=== PATIENT | female | born 1940 | race Caucasian/White ===

== ENCOUNTER 2018-02-10 10:00 | Inpatient (IN) | payer MEDICARE, OTHER ==
[~2018-02-10] VITALS: Ht 165.1 cm; Wt 76.2 kg
[~2018-02-10 10:00] MED LIST: FIORINAL 50-321 EACH PO; METOPROLOL; OMEPRAZOLE40 MG PO; PRISTIQ ER50 MG PO
[2018-02-10] MEDS ORDERED: ASPIRIN 325 MG TAB PO ONE (10:45)
[2018-02-10] MEDS ORDERED: SYNTHROID75 MCG PO (11:42)
[2018-02-10] MEDS ORDERED: ASPIRIN 81 MG CHEW TAB PO ONE (11:45)
[2018-02-10 14:58] LABS: CREATINE KINASE 36 IU/L (29-168)
[2018-02-10 15:16] VITALS: BP 157/82
[2018-02-10 15:43] VITALS: BP 157/82
[2018-02-10 16:00] VITALS: BP 163/71
[2018-02-10] MEDS: MORPHINE SULFATE 2 MG/ML SYR IV PRN ×2 (16:40→22:34)
[2018-02-10] MEDS: ONDANSETRON HCL INJ 2 MG/ML VIAL IV PRN (16:45)
[2018-02-10] MEDS ORDERED: CAFFEINE PO PRN (18:30)
[2018-02-10] MEDS ORDERED: [UNRECOGNIZED DRUG - OTHER] PO PRN (18:30)
[2018-02-10] MEDS ORDERED: BUTALBITAL PO PRN (18:30)
[2018-02-10] MEDS ORDERED: ASPIRIN PO PRN (18:30)
[2018-02-10 19:49] VITALS: BP 146/65
[2018-02-10] MEDS: METOPROLOL SUCCINATE 50 MG TAB XL PO SCH (21:04)
[2018-02-10 23:45] VITALS: BP 135/63
[2018-02-11 02:31] LABS: CREATINE KINASE 59 IU/L (29-168)
[2018-02-11] MEDS: MORPHINE SULFATE 2 MG/ML SYR IV PRN (03:12)
[2018-02-11 04:48] LABS: BASOPHILS % 0.9 % (0.0-1.0); EOSINOPHILS # (AUTO) 0.1 (0.0-0.4); EOSINOPHILS % 2.1 % (0.0-6.0); HEMATOCRIT 38.1 % (34.2-44.1); HEMOGLOBIN 12.8 g/dL (12.0-16.0); LYMPHOCYTES # (AUTO) 1.2 (1.0-3.2); LYMPHOCYTES % 28.4 % (18.0-39.1); MEAN CORPUSCULAR HGB CONC 33.6 g/dL (31-35); MEAN CORPUSCULAR VOLUME 95.3 fL (81-99); MONOCYTES # (AUTO) 0.5 (0.2-0.8); MONOCYTES % 12.1 % (4.4-11.3); NEUTROPHILS # (AUTO) 2.4 (2.1-6.9); NEUTROPHILS % 56.3 % (38.7-80.0); PLATELET COUNT 139 x10e3/uL (140-360); RED CELL DISTRIBUTION WIDTH 12.1 % (11.7-14.4)
[2018-02-11 04:50] VITALS: BP 120/58
[2018-02-11 05:08] LABS: ANION GAP 11.2 mmol/L (8-16); BLOOD UREA NITROGEN 16 mg/dL (7-26); BUN/CREATININE RATIO 26 (6-25); CALCIUM 8.9 mg/dL (8.4-10.2); CARBON DIOXIDE 24 mmol/L (22-29); CHLORIDE 107 mmol/L (98-107); CREATINE KINASE 46 IU/L (29-168); CREATININE, SERUM 0.62 mg/dL (0.57-1.11); EST GLOMERULAR FILTRATION RATE > 60 ML/MIN (60-); GLUCOSE 92 mg/dL (74-118); MAGNESIUM 1.9 MG/DL (1.3-2.1); PHOSPHORUS 2.9 MG/DL (2.3-4.7); POTASSIUM 4.2 mmol/L (3.5-5.1); SODIUM 138 mmol/L (136-145)
[2018-02-11] MEDS ORDERED: LEVOTHYROXINE SODIUM 75 MCG TAB PO SCH (06:00)
[2018-02-11 07:17] LABS: CHOL/HDL RATIO 2.7 (3.0-3.6)
[2018-02-11] MEDS ORDERED: ACETAMINOPHEN 325 MG TAB PO PRN (07:30)
[2018-02-11 07:56] VITALS: BP 132/61
[2018-02-11 08:30] VITALS: BP 132/61
[2018-02-11] MEDS ORDERED: DESVENLAFAXINE SUCCINATE 50 MG TAB.SR.24H PO SCH (09:00)
[2018-02-11] MEDS ORDERED: PANTOPRAZOLE SOD 40 MG TABEC PO SCH (09:00)
[2018-02-11] MEDS ORDERED: ASPIRIN 325 MG TAB EC PO SCH (09:00)
[2018-02-11] MEDS: ONDANSETRON HCL INJ 2 MG/ML VIAL IV PRN ×2 (10:08→14:00)
[2018-02-11 16:30] VITALS: BP 149/67
--- NOTE | 2018-02-11 19:43 | History and Physical ---
This is a 78-year-old female who comes in with acute onset of confusion and off balance. HISTORY OF PRESENT ILLNESS: This is a 78-year-old female with a history of hypertension, history of palpitations, history of migraine headaches was in her usual state of health until she started to have acute senses of wanting to cry and also unable to stand straight, and has instability. The patient also has a history of anxiety. The patient also has had episode of incessant crying at that time. Came into the emergency room and was admitted to the hospital for rule out TIA, history of hypertension. PAST MEDICAL HISTORY: Includes history of hypertension, history of anxiety disorder, history of migraine headaches, history of COPD, history of thyroid disease, history of hypothyroidism, history of renal cancer, history of hyperglycemia. SURGICAL HISTORY: Lumbar laminectomy and fusion times 4, partial nephrectomy, right-sided, tonsillectomy, history of appendectomy, history of partial hysterectomy, bilateral oophorectomy, right meniscal repair, bilateral cataract repair. The patient was recently in the hospital for the partial nephrectomy. FAMILY HISTORY: History of coronary disease in father and mother. History of brother having colon cancer. SOCIAL HISTORY: No ETOH. History of smoking in the past. No IV drug use either. REVIEW OF SYSTEMS: Negative for chest pain. No shortness of breath. No nausea, vomiting or diarrhea. No constipation. No rectal bleeding. Positive for emotional liabilities. Positive for some headaches and also mental confusion. PHYSICAL EXAMINATION GENERAL: The patient is alert and oriented times 3. HEENT: Normocephalic and atraumatic. Pupils are reactive to light and accommodation. CV: S1 and S2 normal. LUNGS: Clear to auscultation bilaterally. ABDOMEN: Nontender and nondistended. EXTREMITIES: No clubbing. No cyanosis. No edema. LABS: The patient's laboratory values, initial white count is 4.3, hemoglobin 12.3, hematocrit 33.1, and platelet count is 139,000. Monocytes 12.2. Chemistry: Sodium 138, potassium 4.2, EGFR greater than 60. Troponin times 3 was negative. HDL was 63. IMAGING STUDIES: MRI was negative. Neck MRI was also negative. Echocardiogram shows trace amount of pericardial effusion, otherwise negative. ASSESSMENT: Questionable transient ischemic attack. Consult with Dr. Jada Mckeon has already been done. She does not think the patient had a transient ischemic attack. Questionable headache onset described in symptoms. PLAN: To discharge the patient home today. Further recommendations per clinical course. We will also see the patient as an outpatient. Will restart her oral medications. I will see her back in the clinic. She can continue on home medicines. Will see her back in the clinic in 1 week. Job#: [id number] MACEY
--- NOTE | 2018-02-11 19:55 | Consultation ---
DATE OF CONSULTATION: February 11, 2018 NEUROLOGY CONSULTATION HISTORY OF PRESENT ILLNESS: Ms. Evans is a 77-year-old right hand dominant woman with past medical history significant for hypertension and a prior history of renal cancer, status post right partial nephrectomy who presented to [facility] on February 10, 2018 with 2 days of symptoms which are described as follows: On the day prior to admission, the patient awoke with an "electric sensation" over the head. Ms. Evans thought this abnormal sensation was a medication side effect, but did not seek medical evaluation. On the day of admission, the patient awoke at approximately 0800. When she awoke, the patient noted generalized weakness, dizziness which is further described as a vertiginous sensation, slurred speech, mild gait impairment, and confusion. Multiple of the patient's family members who are at the bedside reports the patient did not recall the name of the president of the [employer], had difficulty operating her smart phone, had difficulty recalling the names of family members, etc. The patient had a headache as well which is described as follows: The pain localized over the occiput and did not radiate. The pain was described as dual and aching and rated an 8/10. There was no photophobia, phonophobia, nausea, or vomiting associated with the headache. Upon further questioning, Ms. Evans reports the above constellation of symptoms was present throughout the day prior to admission, but significantly worsened on the day of admission. On the day of admission, Ms. Evans awoke her , alert him to her symptoms and came to the emergency center at [facility] via private vehicle for further evaluation. Upon admission to the emergency center, patient was afebrile with a blood pressure of 173/80 mmHg and a pulse of 71 beats per minute. Her neurological examination is documented as follows: Alert. Oriented x3. Abnormal verbal response (expressive aphasia0. Mood/affect normal. Speech normal. Cranial nerves normal (as tested and tested) and 2 through 12 intact. No cerebellar findings. No motor deficits and deficits. No sensory deficit. An NIH stroke scale score of [address] of the brain without contrast was performed and did not show evidence of recent large territorial ischemia or hemorrhage. Ms. Evans was admitted to [facility] for further evaluation and treatment of her symptoms. Ms. Evans does report a prior instance of vertigo. She does not report a history of migraine or other headaches. REVIEW OF SYSTEMS: Palpitations, generalized weakness, confusion, vertigo, headache, dysarthria. Otherwise, the 12-point review of systems is negative. PAST MEDICAL HISTORY: Hypertension, COPD, thyroid disease, gastroesophageal reflux disease, anxiety disorder, prior history of renal cancer, hypoglycemia. PAST SURGICAL HISTORY: Lumbar spine surgery x4, right partial nephrectomy, tonsillectomy, appendectomy, partial hysterectomy, bilateral oophorectomy, right meniscus repair, bilateral cataract resection. PAST HOSPITALIZATIONS: Surgeries/procedures as listed, childbirth x2. FAMILY HISTORY: The patient's paternal and maternal grandparents are . Their medical histories are unknown. The patient's father and mother are . Both had coronary artery disease and from heart attacks. Ms. Evans had 2 brothers and 2 sisters. One brother and 1 sister are from separate motor vehicle accidents. One brother is alive and has a prior history of colon cancer. One sister is alive and healthy. Ms. Evans has 2 children, a daughter and a son, who are both living. Both children are healthy. SOCIAL HISTORY: Ms. Evans is . She completed school through the 10th grade. The patient is retired. The patient does report a history of tobacco use, but quit smoking cigarettes 12 to 13 years ago. Ms. Evans does not report current or prior alcohol or recreational drug use. HOME MEDICATIONS: Fiorinal one capsule by mouth three times daily as needed for headache, Pristiq ER 50 mg by mouth daily, levothyroxine 75 mcg by mouth daily, omeprazole 40 mg by mouth daily, metoprolol. ALLERGIES: CODEINE, DEMEROL, AND PENICILLIN. PATIENT REPORTS DEMEROL AND CODEINE CAUSE HIVES. NO KNOWN FOOD ALLERGIES. NO KNOWN ALLERGIES TO LATEX. NO KNOWN ALLERGIES TO IODINE OR OTHER CONTRAST MATERIALS. PHYSICAL EXAMINATION VITAL SIGNS: Height 65 inches, weight 168 pounds, BMI 28.0 kg per meter squared. Blood pressure 132/61 mmHg, pulse 85 beats per minute, respiratory rate 18 breaths per minute, oxygen saturation 96% on room air. GENERAL: Patient is awake and alert, does not appear distressed. Overweight. HEENT: Normocephalic, atraumatic. Pupils are equal, round, and reactive to light. Moist mucous membranes. NECK: Supple. No appreciable thyromegaly. No appreciable carotid bruits. CARDIOVASCULAR: S1, S2, regular rate and rhythm. No murmurs, rubs, or gallops. RESPIRATORY: Clear to auscultation bilaterally. No wheezes, rhonchi, or rales. EXTREMITIES: The skin is warm and dry. No clubbing, cyanosis, or edema. The posterior tibial and dorsalis pedis pulses are 2+ and symmetric. SKIN: No rashes or lesions. NEUROLOGIC MEMORY/ATTENTION: The patient is awake and alert, oriented to person, place, time, and situation. CRANIAL NERVES: Cranial nerve I - Not tested. Cranial nerve II, III, IV, and - Pupils are equal and round, react briskly to light (from 4 mm to 2 mm). Extraocular movements intact. No nystagmus. Cranial nerve V - Sensation to light touch and pinprick is intact in the bilateral V1 through V3 distributions. Strength of the temporalis and masseter muscles is within normal limits. Cranial nerve VII - The face is symmetric as are all facial movements. Strength is within normal limits. Cranial nerve VIII - Hearing is intact to finger rub bilaterally. Cranial nerve IX, X - The soft palate elevates equally and symmetrically. Cranial nerve XI - Normal strength of the bilateral sternocleidomastoid and trapezius muscles. Cranial nerve XII - The tongue protrudes midline and moves symmetrically from side to side. STRENGTH: Bulk is normal. Strength is 5/5 in the bilateral deltoids, biceps, triceps, wrist flexors and extensors, finger flexors and extensors, intrinsic hand muscles, hip flexors, knee flexors and extensors, ankle dorsiflexion and plantar flexion, and intrinsic foot muscles. Tone is normal. DTRs: Deep tendon reflexes are 2+ and symmetric at the triceps, biceps, brachioradialis, and patellas. Deep tendon reflexes are absent and symmetric at the Achilles. Plantar responses are flexor bilaterally. SENSATION: Sensation is intact to light touch and pinprick in both arms and both legs. CEREBELLAR: Fihqlp-geps-mkllrn and heel-crowe movements are intact without dysmetria or other impairment. GAIT: Gait deferred. SPEECH: Spontaneous speech is normal without appreciable dysarthria or aphasia. Repetition is intact. INVOLUNTARY MOVEMENTS: None. PRONATOR DRIFT: None. LABORATORY DATA: Sodium 138, potassium 4.2, chloride 107, carbon dioxide 24, anion gap 11.2, BUN 16, creatinine 0.62, estimated GFR greater than 60, BUN to creatinine ratio 26, glucose 90, calcium 8.9, phosphorus 2.9, magnesium 1.9. Creatinine kinase 36, 59, 46. CK-MB 1.01, 1.30, 1.20. Troponin I less than 0.001, less than 0.001, less than 0.001. Total cholesterol 171, triglyceride 95, LDL cholesterol 89, HDL cholesterol 63. CBC with differential and platelets reveals a white blood cell count of 4.30 with 56.3% neutrophils, 28.4% lymphocytes, 12.1% monocytes, 2.1% eosinophils and 0.9% basophils. The hemoglobin hematocrit are 12.8 and 38.1, respectively. The platelet count is 139. DIAGNOSTIC STUDIES 1. EKG on 02/10/2018: Sinus rhythm at 68 beats per minute. 2. Chest x-ray, 02/07/2018: No cardiopulmonary abnormality. 3. CT of the brain without contrast 02/10/2018: There is no evidence of recent large territorial ischemia, hemorrhage, mass, or mass effect. 4. Echocardiogram 02/11/2018: Ejection fraction 65 to 70%. Trivial pericardial effusion. 5. MRI brain without contrast 02/11/2018: On my review, there is no evidence of recent large territorial ischemia, hemorrhage, mass, or mass effect. Cerebral volumes are appropriate for age. There are findings compatible with very mild chronic small vessel ischemic disease. 6. MRA of the neck without contrast 02/11/2018: On my review, there is no evidence of hemodynamically significant stenoses. ASSESSMENT AND PLAN: Ms. Evans is a 77-year-old right hand dominant woman admitted with multiple symptoms as described in the history of present illness. At present, her neurological examination is nonfocal. Her laboratory data and other diagnostic studies have been reviewed and are documented above. Due to the duration of the patient's symptoms (approximately 36 hours), Ms. Evans did not have a transient ischemic attack. On my review of her MRI of the brain without contrast, there is no evidence of recent stroke or hemorrhage. Given the presence of a headache and the duration of the patient's symptoms, it is possible Ms. Evans experienced an atypical migraine. Ms. Evans's symptoms have significantly improved/resolved. Potentially serious etiologies of her symptoms has been evaluated and excluded. There are no other recommendations from the neurology service at this time. Ms. Evans may be discharged home. Thank you for this consultation. TIME SPENT: 70 minutes. Job#: [id number] HERIBERTOU MTDD
[2018-02-11] MEDS: METOPROLOL SUCCINATE 50 MG TAB XL PO SCH (20:02)
[2018-02-11 20:03] VITALS: BP 169/54
--- NOTE | 2018-02-14 11:57 | Diagnostic Imaging Report ---
Examination: MRI BRAIN WITHOUT CONTRAST History: Weakness. Comparison studies: Brain MRI performed February 19, 2016 Technique: Sagittal T2; axial DWI, FLAIR, GRE or SWI, T1, Coronal FLAIR. Intravenous contrast: None Findings: Scalp: No abnormal signal. No masses. Bone marrow: Normal in signal intensity. Brain volume: Adequate for age. No volume loss. Ventricles: Normal in size and configuration. No hydrocephalus. Extra-axial spaces: No abnormalities. Parenchyma: There are few scattered patchy areas areas of T2/FLAIR hyperintensity in the periventricular and subcortical and pontine white matter, nonspecific. No masses, hemorrhage, or acute vascular insults. Suprasellar and sellar region: No abnormalities. Craniocervical junction: No abnormalities. The foramen magnum is patent. No Chiari malformations. Vessels: Normal flow-voids in the arteries and sinuses. Additional findings:None. IMPRESSION: No acute abnormalities. Unchanged minimal chronic microvascular ischemic change when compared to prior brain MRI performed February 19, 2016. Signed by: Dr. Adina Hall M.D. on 02/14/2018 11:53 AM
--- NOTE | 2018-02-14 12:06 | Diagnostic Imaging Report ---
Examination: MRA NECK WITHOUT CONTRAST History: Imbalance. Dizziness. Comparison studies: None Technique: 2-D [id number] MR angiogram of the cervical circulation was obtained. MIP images of the arteries were isolated into the right and left cervical circulations. Degree of stenosis at the carotid bulbs, if present, will be calculated using NASCET criteria where the smallest diameter at the location of stenosis is compared to the diameter of the more distal non-diseased vessel lumen. Findings: Aortic arch: Motion artifact limits evaluation. Internal carotid arteries: Evaluation of the origins of the common carotid arteries is limited due to motion artifact. The cervical carotid bifurcations or in the cervical segments are patent. Vertebral arteries: The origins of the vertebral arteries is difficult to evaluate due to motion artifact. The bilateral cervical segments (V1-V3) are patent. IMPRESSION: Despite limitation, no cervical or intracranial arterial stenosis or occlusion. Signed by: Dr. Adina Hall M.D. on 02/14/2018 12:02 PM
== END 2018-02-11 20:11 | disposition home or self-care (01) | DRG 103 ==
LOC: FSED 10:00 → ERHOLD 11:35 → MED/SURG2 13:24
PROVIDERS: ADMIT Family Medicine; ATTEND Family Medicine
DX: G43.809 Other migraine, not intractable, without status migrainosus (principal); I10 Essential (primary) hypertension; J44.9 Chronic obstructive pulmonary disease, unspecified; K21.9 Gastro-esophageal reflux disease without esophagitis; F41.9 Anxiety disorder, unspecified; Z85.528 Personal history of other malignant neoplasm of kidney; Z90.5 Acquired absence of kidney; Z88.5 Allergy status to narcotic agent; Z88.0 Allergy status to penicillin
CPT/HCPCS: 36415; 70450; 70547; 70551; 71046; 80048; 80053; 80061; 81003; 82550; 82553; 83735; 84100; 84484; 85025; 93005; 93306; 99283; J2270; J2405

== ENCOUNTER → 2018-11-10 | Outpatient (CLI) | payer MEDICARE, OTHER ==
[~2018-11-10] MED LIST changes: +SYNTHROID75 MCG PO
== END ==
LOC: CARD 08:27
PROVIDERS: ATTEND Family Medicine
DX: I73.9 Peripheral vascular disease, unspecified (principal)
CPT/HCPCS: 93925

== ENCOUNTER → 2018-11-29 | Outpatient (CLI) | payer MEDICARE, OTHER ==
[~2018-11-29] MED LIST changes: +IOPAMIDOL 370 MG/ML 200 ML INFUS..BTL INJ ONE; +SODIUM CHLORIDE 0.9% 100 ML 100 ML ONE
[2018-11-29 15:45] LABS: BLOOD UREA NITROGEN 19 mg/dL (7-26); BUN/CREATININE RATIO 29 (6-25); CREATININE, SERUM 0.66 mg/dL (0.57-1.11); EST GLOMERULAR FILTRATION RATE > 60 ML/MIN (60-)
--- NOTE | 2018-11-30 08:17 | Diagnostic Imaging Report ---
CT angiogram of the abdomen pelvis with bilateral lower extremity runoffs. Indication: Peripheral arterial disease TECHNIQUE: Abdomen, pelvis, and bilateral lower extremities were scanned utilizing a multidetector helical scanner from the inferior lungs to the level of bilateral feet after administration of IV contrast. Coronal and sagittal reformations were obtained. CT Angiogram protocol was performed. 3D reconstructions were also performed. IV CONTRAST: 100 mL of Isovue 370 RADIATION DOSE: Total DLP: 1026.2 mGy*cm Dose modulation, iterative reconstruction, and/or weight based adjustment of the mA/kV was utilized to reduce the radiation dose to as low as reasonably achievable. COMPLICATIONS: None COMPARISON: CT abdomen/pelvis without contrast 02/18/2017. Images from CT abdomen/pelvis from 09/23/2017, although the report was not available for review at the time dictation. FINDINGS: VESSELS Moderate to extensive calcified and non-calcified atherosclerotic plaque throughout the abdominal aorta and its major branches. No evidence of abdominal aortic aneurysm or dissection. There is focal mild stenosis in the infrarenal abdominal aorta (series 3, image 53). The celiac artery, SMA, NURY, and bilateral renal arteries are patent with multifocal mild stenoses. Bilateral common and internal iliac arteries demonstrate atherosclerotic changes with multifocal mild to moderate stenoses. Atherosclerotic changes in the bilateral external iliac arteries with multifocal mild stenoses. Right lower extremity: Atherosclerotic changes with multifocal mild stenoses within the right common femoral artery. Atherosclerotic changes results in mild multifocal stenoses within the right superficial and deep femoral arteries and popliteal artery. Atherosclerotic changes with possible moderate focal stenosis in the proximal anterior tibial artery although evaluation is limited due to calcification (Series 3, image 222) which is otherwise unremarkable. Mild atherosclerotic changes within the tibioperoneal trunk, posterior tibial arteries, and peroneal artery with scattered mild stenoses. The distal vessels are not well opacified but there is likely a three-vessel runoff to the foot. Left lower extremity: Atherosclerotic changes with multifocal mild stenoses within the left common femoral artery. Atherosclerotic changes results in mild multifocal stenoses within the left superficial femoral and deep femoral arteries and popliteal artery. Mild atherosclerotic changes within the tibioperoneal trunk, anterior and posterior tibial arteries, and peroneal artery with scattered mild stenoses. The distal vessels are not well opacified but there is likely a three-vessel runoff to the foot. Abdomen and Pelvis: LOWER THORAX: There are clustered tree-in-bud nodules within the dependent right middle lobe, for example on series 3, image 11 and right lower lobe on image 7. Patchy dependent atelectasis. Scattered emphysematous changes of the lung bases. HEPATOBILIARY: No evidence of focal lesion. No biliary ductal dilation. GALLBLADDER: No radio-opaque stones or sludge. No wall thickening. SPLEEN: No splenomegaly. PANCREAS: No focal masses or ductal dilatation. ADRENALS: Unchanged 1.9 cm right adrenal nodule, previously characterized as adenoma. Unchanged mild thickening of the left adrenal gland. KIDNEYS/URETERS: Kidneys enhance symmetrically. No evidence of hydronephrosis, solid mass, or stone. Status post partial left nephrectomy. Bilateral renal cysts. Additional subcentimeter bilateral renal hypodensities are too small to characterize, but likely represent cysts, unchanged since CT abdomen/pelvis from 09/23/2017. GI TRACT: No evidence of wall thickening or distension. There are post surgical changes of appendectomy. There is a duodenal diverticulum. PELVIC ORGANS/BLADDER: The bladder is unremarkable in appearance. Status post hysterectomy. LYMPH NODES: No lymphadenopathy. PERITONEUM / RETROPERITONEUM: No free air or fluid. BONES AND SOFT TISSUES: No acute osseous abnormality. No suspicious lytic or blastic lesions. Degenerative changes of the visualized spine. IMPRESSION: 1. Moderate to extensive atherosclerotic changes within the abdominal aorta and branch vessels without significant stenosis. No evidence of aortic dissection or aneurysm. 2. Atherosclerotic changes with mild to moderate stenoses within the bilateral common iliac arteries and mild stenoses in the internal and external iliac arteries. 3. Atherosclerotic changes with mild multifocal stenoses in the bilateral lower extremity arterial vasculature. Possible focal moderate stenosis in the proximal right anterior tibial artery. The distal vessels are not well opacified but there are likely three vessel runoffs to bilateral feet. 4. Status post partial left nephrectomy with unchanged appearance of bilateral renal cysts and subcentimeter renal hypodensities. No evidence of metastatic disease in the abdomen or pelvis. 5. Clustered tree in bud nodules in the dependent right middle and lower lobes, likely reflecting aspiration. Followup chest CT may be considered in 3 months to evaluate for resolution. Signed by: Dr. Paramjit Quezada MD on 11/30/2018 8:14 AM
== END ==
LOC: CT 14:37
PROVIDERS: ATTEND Family Medicine
DX: I73.9 Peripheral vascular disease, unspecified (principal)
CPT/HCPCS: 36415; 75635; 82565; 84520; Q9967

== ENCOUNTER → 2018-12-14 | Day surgery (SDC) | payer MEDICARE, OTHER ==
[2018-12-12 14:17] LABS: BASOPHILS % 0.4 % (0.0-1.0); EOSINOPHILS # (AUTO) 0.1 (0.0-0.4); EOSINOPHILS % 2.7 % (0.0-6.0); HEMATOCRIT 38.7 % (34.2-44.1); HEMOGLOBIN 12.8 g/dL (12.0-16.0); LYMPHOCYTES # (AUTO) 0.7 (1.0-3.2); LYMPHOCYTES % 14.9 % (18.0-39.1); MEAN CORPUSCULAR HEMOGLOBIN 31.8 pg (28-32); MEAN CORPUSCULAR HGB CONC 33.1 g/dL (31-35); MONOCYTES # (AUTO) 0.6 (0.2-0.8); MONOCYTES % 11.6 % (4.4-11.3); NEUTROPHILS # (AUTO) 3.3 (2.1-6.9); PLATELET COUNT 146 x10e3/uL (140-360); RED BLOOD COUNT 4.03 x10e6/uL (3.6-5.1); RED CELL DISTRIBUTION WIDTH 12.1 % (11.7-14.4)
[2018-12-12 14:20] LABS: INR 0.91; PROTHROMBIN TIME 12.7 seconds (11.9-14.5)
[2018-12-12 14:50] LABS: ALANINE AMINOTRANSFERASE 24 IU/L (0-55); ALBUMIN/GLOBULIN RATIO 1.4 (0.8-2.0); ALKALINE PHOSPHATASE 131 IU/L (40-150); ANION GAP 12.1 mmol/L (8-16); BLOOD UREA NITROGEN 21 mg/dL (7-26); BUN/CREATININE RATIO 30 (6-25); CALCIUM 10.3 mg/dL (8.4-10.2); CARBON DIOXIDE 26 mmol/L (22-29); CHLORIDE 104 mmol/L (98-107); CREATININE, SERUM 0.69 mg/dL (0.57-1.11); EST GLOMERULAR FILTRATION RATE > 60 ML/MIN (60-); POTASSIUM 4.1 mmol/L (3.5-5.1); SODIUM 138 mmol/L (136-145)
[2018-12-12 14:54] LABS: GLUCOSE 52 mg/dL (74-118)
[2018-12-14] VITALS (8 sets, daily range): BP systolic 107–178; BP diastolic 60–81
[~2018-12-14] VITALS: Ht 165.1 cm; Wt 78.5 kg
[~2018-12-14] MED LIST changes: +ALPRAZOLAM 0.5 MG TAB ONE; +FENTANYL CITRATE/PF 100MCG/2 ML INJ ONE; +HEPARIN SOD/SOD CHLORIDE 2,000 ML ONE; +HYDRALAZINE HCL 20 MG/ML VIAL ONE; +IOPAMIDOL 300MG/ML 100 ML INFUS..BTL IV ONE; -IOPAMIDOL 370 MG/ML 200 ML INFUS..BTL INJ ONE; +LIDOCAINE HCL 2% LOCAL 20 ML VIAL ONE; -METOPROLOL; +METOPROLOL PO; +MIDAZOLAM HCL 2 MG/2 ML VIAL ONE; -SODIUM CHLORIDE 0.9% 100 ML 100 ML ONE; +SODIUM CHLORIDE 0.9% 1000ML 1,000 ML ONE
--- OUTSIDE RECORDS SUMMARY | 2018-12-14 08:30 | XMS REPORT | Clinical Summary ---
Author Author [facility] Address Unknown Phone Unavailable Care Team Providers Care End Trimmer Name Role Phone Jorge L Sue MD PCP Allergies Comments Active Allergy Reactions Severity Noted Date Codeine Hives 02/01/2017 Meperidine Hives 02/01/2017 Tramadol Hives 02/26/2017 Medications End Date Status Medication Sig Dispensed Refills Start Date Active levothyroxine (SYNTHROID, Take 75 mcg 0 LEVOTHROID) 75 MCG tablet by mouth Every morning on an empty stomach. Active desvenlafaxine succinate Take 50 mg by 0 (PRISTIQ) 50 MG 24 hr mouth daily. tablet Active metoprolol (LOPRESSOR) 50 Take 100 mg 0 MG tablet by mouth daily . Active omeprazole (PRILOSEC) 40 Take 40 mg by 0 MG capsule mouth daily. Active butalbital-acetaminophen- Take 1 tablet 0 caffeine (FIORICET, by mouth ESGIC) 50-325-40 mg per every 6 (six) tablet hours as needed for Headaches. Active Problems Problem Noted Date Left renal mass 2017 Encounters Care Team Description Date Type Specialty Link, Christophe Nicolas MD Renal cell carcinoma of left kidney (HCC) (Primary Dx) 10/18/2018 Outside Orders Central Scheduling Link, Christophe Nicolas MD Renal carcinoma, left (HCC) 10/12/2018 Hospital Radiology Encounter Link, Christpohe Nicolas MD Renal carcinoma, left (HCC) (Primary Dx) 10/12/2018 Outside Orders Central Scheduling Link, Christophe Nicolas MD [address] [facility] [address] Room Recurrent renal cell carcinoma of kidney, left (HCC) 10/10/2018 Hospital Computed Tomography Encounter Link, Christophe Nicolas MD Recurrent renal cell carcinoma of kidney, left (HCC) (Primary Dx) 08/08/2018 Outside Orders Central Scheduling after 12/13/2017 Social History Date Tobacco Use Types Packs/Day Years Used Former Smoker 1.5 50 Comments: quit 10 years ago Alcohol Use Drinks/Week oz/Week Comments No Sex Assigned at Date Recorded Not on file Industry Job Start Date Occupation Not on file Not on file Not on file Travel End Travel History Travel Start No recent travel history available. Last Filed Vital Signs Not on file Plan of Treatment Not on file Procedures Comments Procedure Name Priority Date/Time Associated Diagnosis XR CHEST 2 VIEWS Routine 10/12/2018 Renal carcinoma, left 3:16 PM [employer] (HCC) CT ABDOMEN/PELVIS Routine 10/10/2018 Recurrent renal cell WITH/WITHOUT IV CONTRAST 10:58 AM [employer] carcinoma of kidney, left (HCC) POCT-CREATININE Routine 10/10/2018 10:05 AM [employer] after 12/13/2017 Results * XR Chest 2 Views (10/12/2018 3:16 PM [employer]) Specimen Narrative Performed At FINAL REPORT [facility] EXAMINATION:RAD, CHEST, 2 VIEWS INDICATION: Renal cell carcinoma of left kidney COMPARISON:Chest radiograph 02/26/2017 FINDINGS:AP view TUBES and LINES:Cardiac loop recorder overlying the chest at midline, unchanged. LUNGS:Lungs are well inflated.Lungs are clear. There is no evidence of pneumonia or pulmonary edema. PLEURA:No pleural effusion or pneumothorax. HEART AND MEDIASTINUM:The cardiac silhouette is within normal limits. Fullness of the left hilar remains unchanged and may reflect prominent left pulmonary artery. BONES AND SOFT TISSUES:No acute osseous lesion.Soft tissues are unremarkable. UPPER ABDOMEN: No free air under the diaphragm. IMPRESSION: No acute thoracic abnormality. Signed: Chandan Duncan MD Report Verified Date/Time:10/13/2018 11:26:10 Reading Location: [facility] Reading Room [address] [place] [address] Procedure Note Interface, External Ris In - 10/13/2018 11:28 AM [employer] FINAL REPORT EXAMINATION: RAD, CHEST, 2 VIEWS INDICATION: Renal cell carcinoma of left kidney COMPARISON: Chest radiograph 02/26/2017 FINDINGS: AP view TUBES and LINES: Cardiac loop recorder overlying the chest at midline, unchanged. LUNGS: Lungs are well inflated. Lungs are clear. There is no evidence of pneumonia or pulmonary edema. PLEURA: No pleural effusion or pneumothorax. HEART AND MEDIASTINUM: The cardiac silhouette is within normal limits. Fullness of the left hilar remains unchanged and may reflect prominent left pulmonary artery. BONES AND SOFT TISSUES: No acute osseous lesion. Soft tissues are unremarkable. UPPER ABDOMEN: No free air under the diaphragm. IMPRESSION: No acute thoracic abnormality. Signed: Chandan Duncan MD Report Verified Date/Time: 10/13/2018 11:26:10 Reading Location: [facility] Reading Room [address] [place] [address] Performing Organization Address City/State/Zipcode Phone Number [employer] * CT abdomen/pelvis without & with IV contrast (10/10/2018 10:58 AM [employer]) Specimen Narrative Performed At FINAL REPORT [employer] EXAM: CT Abdomen WITHOUT and WITH contrast INDICATION: Renal massc64.2 COMPARISON: September 23, 2017 TECHNIQUE:Abdomen was scanned utilizing a multidetector helical scanner from the lung base to the iliac crest before and after administration of IV contrast. Coronal and sagittal reformations were obtained. Renal mass protocol was performed. Scan was performed pre-, nephrographic, and 4 minute delayed phase. IV CONTRAST: 150 mL of Omnipaque 300 ORAL CONTRAST: Water COMPLICATIONS: None RADIATION DOSE: Total DLP: 2103 mGy*cm Estimated effective dose: (DLP x 0.015 x size factor) mSv CTDIvol has been reviewed. It is below the limits set by the Radiation Protocol Committee (RPC). FINDINGS: LINES and TUBES: None. LOWER THORAX:Unremarkable HEPATOBILIARY:No focal hepatic lesions. No biliary ductal dilation. GALLBLADDER: No radio-opaque stones or sludge.No wall thickening. SPLEEN: No splenomegaly. PANCREAS: No focal masses or ductal dilatation. ADRENALS: Bilateral lipid rich adenoma largest on the right 1.8 cm. KIDNEYS/URETERS: Partial left nephrectomy to the superior pole of the left kidney. No recurrent or new enhancing mass. Bilateral simple renal cysts, largest on the left kidney measuring 1.6 cm. GI TRACT: Moderate amount of stool throughout the colon.Small duodenal diverticulum. LYMPH NODES: No lymphadenopathy. VESSELS: Unremarkable. PERITONEUM / RETROPERITONEUM: No free air or fluid. BONES: Prior posterior lumbar spine decompression. No osseous metastatic lesion. SOFT TISSUES: Unremarkable. IMPRESSION: 1.Partial left nephrectomy. No recurrent mass, adenopathy, or metastasis. 2.Simple bilateral renal cysts. 3.Bilateral lipid rich benign adrenal adenoma. Signed: Steven Blood MD Report Verified Date/Time:10/11/2018 10:39:40 Procedure Note Interface, External Ris In - 10/11/2018 10:41 AM [employer] FINAL REPORT EXAM: CT Abdomen WITHOUT and WITH contrast INDICATION: Renal mass c64.2 COMPARISON: September 23, 2017 TECHNIQUE: Abdomen was scanned utilizing a multidetector helical scanner from the lung base to the iliac crest before and after administration of IV contrast. Coronal and sagittal reformations were obtained. Renal mass protocol was performed. Scan was performed pre-, nephrographic, and 4 minute delayed phase. IV CONTRAST: 150 mL of Omnipaque 300 ORAL CONTRAST: Water COMPLICATIONS: None RADIATION DOSE: Total DLP: 2103 mGy*cm Estimated effective dose: (DLP x 0.015 x size factor) mSv CTDIvol has been reviewed. It is below the limits set by the Radiation Protocol Committee (RPC). FINDINGS: LINES and TUBES: None. LOWER THORAX: Unremarkable HEPATOBILIARY: No focal hepatic lesions. No biliary ductal dilation. GALLBLADDER: No radio-opaque stones or sludge. No wall thickening. SPLEEN: No splenomegaly. PANCREAS: No focal masses or ductal dilatation. ADRENALS: Bilateral lipid rich adenoma largest on the right 1.8 cm. KIDNEYS/URETERS: Partial left nephrectomy to the superior pole of the left kidney. No recurrent or new enhancing mass. Bilateral simple renal cysts, largest on the left kidney measuring 1.6 cm. GI TRACT: Moderate amount of stool throughout the colon. Small duodenal diverticulum. LYMPH NODES: No lymphadenopathy. VESSELS: Unremarkable. PERITONEUM / RETROPERITONEUM: No free air or fluid. BONES: Prior posterior lumbar spine decompression. No osseous metastatic lesion. SOFT TISSUES: Unremarkable. IMPRESSION: 1.Partial left nephrectomy. No recurrent mass, adenopathy, or metastasis. 2.Simple bilateral renal cysts. 3.Bilateral lipid rich benign adrenal adenoma. Signed: Steven Blood MD Report Verified Date/Time: 10/11/2018 10:39:40 Performing Organization Address City/State/Zipcode Phone Number [facility] * POC-Creatinine (10/10/2018 10:05 AM [employer]) POC-Creatinine 0.6Comment: TESTED AT [facility] 0.6 - 1.3 mg/dL [facility] [address] [place] [address] POC-EGFR 96 mL/min/1.73M2 [facility] Specimen Blood Performing Organization Address City/State/Zipcode Phone Number [facility] [address] [place] [address] [facility] after 12/13/2017 Insurance Payer Benefit Subscriber ID Type Phone Address Plan / Group MEDICARE MEDICARE A xxxxxxxxxxx Medicare B [facility] xxxxxxxxx CARE COMMERCIAL [employer] INDEMNITY Advance Directives For more information, please contact: [address] [address] Date Inactivated Comments Code Status Date Activated 03/07/2017 5:33 PM Full Code 2017 10:37 PM This code status was determined by: Patient
--- OUTSIDE RECORDS SUMMARY | 2018-12-14 08:31 | XMS REPORT | Continuity of Care Document ---
Author Author [facility] Interface Address Unknown Phone Unavailable Problems Problem Status Onset Date Classification Date Reported Comments Source R91.1 Active 03/29/2017 [facility] URINARY SYMPTOMS Active 02/19/2017 [facility] UNK Active 12/23/2016 [facility] R05 - COUGH Active 11/20/2016 [facility] COPD (<span ID="[id number]</span>) Active Problem 04/03/2017 [facility] Hypertension Active Problem 04/03/2017 [facility] Hypoglycemia Active Problem 04/03/2017 [facility] Arthritis Active Problem 04/03/2017 [facility] Cancer of kidney Resolved Problem 04/03/2017 [facility] PALPITATIONS Active [facility] SOLITARY PULMONARY NODULE Active [facility] Medications Medication Details Route Status Patient Instructions Ordering Provider Order Date Source Ondansetron 4 MG Disintegrating Tablet [Zofran] 4 mg=1 tab, PO, BID, PRN Nausea and Vomiting, Dissolve tab under tongue, X 5 day, # 10 tab, 0 Refill(s) Active 02/19/2017 [facility] Zofran 4 mg, Route: IVP, Drug form: INJ, ONCE, Dosing Weight 76.364, kg, Priority: STAT, Start date: 02/19/17 9:36:00 CDT, Stop date: 02/19/17 9:36:00 CDT Inactive 02/19/2017 [facility] sodium chloride 0.9% 500 ml INJ 500 mL 500 mL, Rate: 1,000 ml/hr, Infuse over: 0.5 hr, Route: IV, Dosing Weight 76.364 kg, Total Volume: 500, Start date: 02/19/17 9:36:00 CDT, Duration: 30 day, Stop date: 03/21/17 9:35:00 CDT Inactive 02/19/2017 [facility] Acetaminophen 300 MG / butalbital 50 MG Oral Tablet 1 tab, PO, Q4H, 0 Refill(s) Active 12/31/2016 [facility] Famotidine 20 MG Oral Tablet [Pepcid] 20 mg=1 tab, PO, Bedtime, # 60 tab, 0 Refill(s) Active 12/31/2016 [facility] metoprolol 50 mg oral tablet, extended release 50 mg=1 tab, PO, Daily, # 30 tab, 0 Refill(s) Active 12/31/2016 [facility] Levothyroxine Sodium 0.1 MG Oral Tablet [Synthroid] 100 microgram=1 tab, PO, Daily, # 30 tab, 0 Refill(s) Active 12/31/2016 [facility] omeprazole 40 mg oral delayed release capsule 40 mg=1 cap, PO, Daily, # 30 cap, 0 Refill(s) Active 12/31/2016 [facility] 24 HR Desvenlafaxine 50 MG Extended Release Tablet [Pristiq] 50 mg=1 tab, PO, Daily, # 30 tab, 0 Refill(s) Active 12/31/2016 [facility] Allergies, Adverse Reactions, Alerts Substance Category Reaction Severity Reaction type Status Date Reported Comments Source codeine Assertion Drug allergy Active [facility] Demerol HCl Assertion Drug allergy Active [facility] penicillins Assertion Drug allergy Active [facility] Immunizations Immunization Date Given Site Status Last Updated Comments Source Results Order Name Results Value Reference Range Date Interpretation Comments Source Chest wo contrast CT Chest wo contrast CT Chest wo contrast CT CLINICAL HX: CT dose DLP 242 mGy-cm VM - Solitary pulmonary nodule/ follow up on abn finding on other exam.. COMPARISON: 11/26/2016 TECHNIQUE: Contiguous transaxial images of the chest were performed without IV contrast. Reformats are available in sagittal and coronal projections. FINDINGS: SUPPORT DEVICES: none LOWER NECK: Symmetric appearance of thyroid gland without focal abnormality. LUNGS AND AIRWAYS: Mild biapical pleural-parenchymal scarring. 13 mm x 12 mm pleural-based nodule left lower lobe with comet tail artifact is essentially unchanged in size and appearance from previous study. The slight difference in size is likely related to slice selection. Mild emphysema. The lungs and pleural spaces are otherwise clear. The trachea and the proximal bronchi are patent. CARDIOVASCULAR: The cardiac size is normal. Mild pericardial thickening. No significant pericardial effusion. Calcific atherosclerotic disease is visualized in the thoracic aorta and coronary vessels. LYMPH NODES: Evaluation is limited due to lack of IV contrast but no significant mediastinal or hilar lymphadenopathy is evident. SOFT TISSUE AND BONES: . No significant bony abnormality is noted. ESOPHAGUS AND UPPER ABDOMEN: The esophagus demonstrates normal morphology. Limited images of the upper abdomen revealed bilateral adrenal nodules, unchanged from previous study. Nonspecific cortical calcifications left kidney. Left renal cyst, unchanged. IMPRESSION: Left lower lobe pleural-based nodule with comet tail artifact is stable in overall size and appearance from previous study. Continued imaging follow-up to document stability is recommended. Repeat CT is suggested in 6 months. Mild emphysema. Mild biapical pleural-parenchymal scarring, unchanged. Calcific atherosclerotic disease is noted in the thoracic aorta and coronary vessels. Stable bilateral adrenal nodules and small left upper pole renal cyst. SL: [id number] 03/31/2017 - - Read by: Jerry Hernandez MD Dictated Date/time: 04/01/17 07:14 Electronically Signed by: Jerry Hernandez MD 04/01/17 07:42 FINAL REPORT [facility] URINE AND STOOL UA Urobilinogen <=1.0 mg/dL 0.1 - 1.0 02/19/2017 [facility]INE [facility] STOOL UA Color Ltyellow 02/19/2017 [facility]INE [facility] STO[facility]A Sq Epi Occasional /LPF Few /LPF 02/19/2017 [facility] URINE [facility] STOOL UA Nitrite Negative (02/19/17 10:30 AM) Negative 02/19/2017 [facility] URINE AND STOOL UA Leuk Est Small *ABN* (02/19/17 10:30 AM) Negative 02/19/2017 [facility] URINE AND STOOL UA RBC 2 /HPF 0 - 2 02/19/2017 [facility]INE [facility] STOOL UA WBC 35 /HPF 0 - 5 02/19/2017 [facility] URINE AND STOOL UA Mucus Few /LPF None Seen /LPF 02/19/2017 [facility] URINE AND STOOL UA Bacteria Occasional /HPF None Seen /HPF 02/19/2017 [facility] URINE AND STOOL UA pH 6.0 5.0 - 8.0 02/19/2017 [facility] URINE AND STOOL UA Glucose Negative mg/dL Negative mg/dL 02/19/2017 [facility] URINE AND STOOL UA Protein Negative mg/dL Negative mg/dL 02/19/2017 [facility] URINE AND STOOL UA Bili Negative *NA* (02/19/17 10:30 AM) Negative 02/19/2017 [facility] URINE AND STOOL UA Blood Negative (02/19/17 10:30 AM) Negative 02/19/2017 [facility] URINE AND STOOL UA Ketones Negative mg/dL Negative mg/dL 02/19/2017 [facility] URINE AND STOOL UA Spec Grav 1.012 <=1.030 02/19/2017 [facility] URINE AND STOOL UA Turbidity Slight *ABN* (02/19/17 10:30 AM) Clear 02/19/2017 [facility] CARDIAC ENZYMES BNP 77 pg/mL <=100 pg/mL 02/19/2017 [facility] CHEM PANEL eGFR 94 mL/min/1.73m2 02/19/2017 Result Comment: The eGFR is calculated using the CKD-EPI formula. In most young, healthy individuals the eGFR will be >90 mL/min/1.73m2. The eGFR declines with age. An eGFR of 60-89 may be normal in some populations, particularly the elderly, for whom the CKD-EPI formula has not been extensively validated. Use of the eGFR is not recommended in the following populations: Individuals with unstable creatinine concentrations, including patients and those with serious co-morbid conditions. Patients with extremes in muscle mass or diet. The data above are obtained from the National Kidney Disease Education Program (NKDEP) which additionally recommends that when the eGFR is used in patients with extremes of body mass index for purposes of drug dosing, the eGFR should be multiplied by the estimated BMI. [facility] CHEM PANEL BUN 13 mg/dL 7 - 22 02/19/2017 [facility] CHEM PANEL Glucose Lvl 98 mg/dL 70 - 99 02/19/2017 [facility] CHEM PANEL Total Protein 6.8 g/dL 6.4 - 8.4 02/19/2017 [facility] CHEM PANEL Bili Total 0.3 mg/dL 0.2 - 1.3 02/19/2017 [facility] CHEM PANEL Creatinine Lvl 0.50 mg/dL 0.50 - 1.40 02/19/2017 [facility] CHEM PANEL Chloride Lvl 103 meq/L 95 - 109 02/19/2017 [facility] CHEM PANEL Potassium Lvl 4.1 meq/L 3.5 - 5.1 02/19/2017 [facility] CHEM PANEL CO2 30 meq/L 24 - 32 02/19/2017 [facility] CHEM PANEL Calcium Lvl 8.8 mg/dL 8.5 - 10.5 02/19/2017 [facility] CHEM PANEL ALT 30 unit/L 0 - 65 02/19/2017 [facility] CHEM PANEL Albumin Lvl 3.6 g/dL 3.5 - 5.0 02/19/2017 [facility] CHEM PANEL Alk Phos 135 unit/L 39 - 136 02/19/2017 [facility] CHEM PANEL AST 20 unit/L 0 - 37 02/19/2017 [facility] CHEM PANEL Sodium Lvl 139 meq/L 135 - 145 02/19/2017 [facility] CHEM PANEL B/C Ratio 26 6 - 25 02/19/2017 [facility] CHEM PANEL A/G Ratio 1.1 0.7 - 1.6 02/19/2017 [facility] CHEM PANEL Globulin 3.2 g/dL 2.7 - 4.2 02/19/2017 [facility] CHEM PANEL AGAP 10.1 meq/L 10.0 - 20.0 02/19/2017 [facility] CHEM PANEL Lipase Lvl 145 unit/L 73 - 393 02/19/2017 [facility] HEMATOLOGY INR 0.90 0.85 - 1.17 02/19/2017 [facility] HEMATOLOGY PT 12.3 s 12.0 - 14.7 02/19/2017 [facility] HEMATOLOGY PTT 29.4 s 22.9 - 35.8 02/19/2017 [facility] HEMATOLOGY Hgb 14.2 g/dL 12.0 - 16.0 02/19/2017 [facility] HEMATOLOGY MPV 8.9 fL 7.4 - 10.4 02/19/2017 [facility] HEMATOLOGY Platelet 132 K/CMM 133 - 450 02/19/2017 [facility] HEMATOLOGY RDW 12.2 % 11.5 - 14.5 02/19/2017 [facility] MCH 33.3 pg 27.0 - 31.0 02/19/2017 [facility] HEMATOLOGY MCV 98.0 fL 80.0 - 98.0 02/19/2017 [facility] HEMATOLOGY Hct 41.8 % 36.0 - 48.0 02/19/2017 [facility] HEMATOLOGY MCHC 34.0 g/dL 32.0 - 36.0 02/19/2017 [facility] HEMATOLOGY RBC 4.27 M/CMM 4.20 - 5.40 02/19/2017 [facility] HEMATOLOGY WBC 5.5 K/CMM 3.7 - 10.4 02/19/2017 [facility] HEMATOLOGY Monocytes 8.6 % 2.0 - 12.0 02/19/2017 [facility] HEMATOLOGY Eosinophils 1.2 % 0.0 - 4.0 02/19/2017 [facility] HEMATOLOGY Lymphocytes 13.7 % 20.0 - 40.0 02/19/2017 [facility] HEMATOLOGY Monocytes # 0.5 K/CMM 0.0 - 0.8 02/19/2017 [facility] Lymphocytes # 0.8 K/CMM 1.0 - 5.5 02/19/2017 [facility] Basophils 0.8 % 0.0 - 1.0 02/19/2017 [facility] Segs-Bands # 4.2 K/CMM 1.5 - 8.1 02/19/2017 [facility] Segs 75.7 % 45.0 - 75.0 02/19/2017 [facility] Eosinophils # 0.1 K/CMM 0.0 - 0.5 02/19/2017 [facility] Abdomen w/wo contrast MRI Abdomen w/wo contrast MRI 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 COMPARISON: None available. TECHNIQUE: Multiplanar multisequential MR images of the abdomen were obtained with and without 15 mL Omniscan intravenous contrast administration. FINDINGS: Lines and tubes: None. Lower thorax: Unremarkable. Liver and biliary tree: Normal. Gallbladder: Normal. No MR evidence of gallstones. Pancreas: Normal. Spleen: Normal. Adrenals: Normal. Kidneys and proximal ureters: In the superior pole of the left kidney, there is a partially exophytic 1.6 x 2.2 x 1.3 cm soft tissue mass. It is slightly hypointense on T2 sequences and isointense on T1 sequences. It is hypoenhancing compared to the surrounding renal parenchyma. A T2/T1 hypointense focus along the posterior aspect may represent calcification. It demonstrates a pseudocapsule. There are several bilateral renal cysts, measuring up to 2 cm. One of these located in the superior pole of the right kidney is T1 hyperintense and likely represents a hemorrhagic cyst. Gastrointestinal tract: Unremarkable with normal caliber. Peritoneum and retroperitoneum: No ascites or free air. Lymph nodes: No pathologic adenopathy. Vasculature: Unremarkable. Bones: No acute abnormality. Soft tissues: Postsurgical changes are identified in the back soft tissues. IMPRESSION: 1.6 x 2.2 x 1.3 cm hypoenhancing left superior pole renal mass concerning for neoplasm. 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 Surgical consultation is recommended. SL: [id number] 11/26/2016 - - Read by: Pilar Shepard Dictated Date/time: 11/26/16 15:19 Electronically Signed by: Pilar Shepard 11/26/16 17:48 FINAL REPORT [facility] Chest wo contrast CT Chest wo contrast CT EXAM: Chest wo contrast CT HISTORY: R05 Cough COMPARISON: None Technique: CT scan of the chest was performed from the thoracic inlet to the lung bases without intravenous contrast administration. Images are presented in the axial, sagittal, and coronal planes. The total DLP for this examination is 239 mGycm. AEC, mA/kV adjustment by patient size, and/or iterative reconstruction technique were used, per departmental dose optimization program. FINDINGS: The visualized thyroid gland appears normal. There is moderate calcific atherosclerotic disease. There is no mediastinal, hilar or axillary adenopathy within the confines of noncontrast technique. There is no pericardial or pleural effusion. No endotracheal or endobronchial lesions are present. There is mild emphysema. There is a pleural-based nodule in the left lower lobe which measures 1.2 x 1.1 cm with surrounding common tail appearing septal thickening suggesting this could potentially be round atelectasis. The lungs are grossly clear bilaterally. Bone windows demonstrate no worrisome lytic or blastic osseous lesions. The spleen appears prominent in size. Small renal hypodensities probably represent cysts. IMPRESSION: There is mild emphysema. There is a pleural-based nodule in the left lower lobe which measures 1.2 x 1.1 cm with surrounding common tail appearing septal thickening suggesting this could potentially be round atelectasis. Neoplasm is not excluded. Consider short-term follow-up in [address] for further evaluation. 11/26/2016 - - Read by: Kristina Watson MD Dictated Date/time: 11/26/16 11:57 Electronically Signed by: Kristina Watson MD 11/26/16 12:04 FINAL REPORT [facility] Vital Signs Vital Sign Value Date Comments Source Respitory Rate 02/19/2017 [facility] Systolic (mm Hg) 145 02/19/2017 [facility] Diastolic (mm Hg) 67 02/19/2017 [facility] Systolic (mm Hg) 154 02/19/2017 [facility] Diastolic (mm Hg) 67 02/19/2017 [facility] Respitory Rate 02/19/2017 [facility] Temperature Oral (F) 97.1 F 02/19/2017 [facility] Systolic (mm Hg) 163 02/19/2017 [facility] Diastolic (mm Hg) 71 02/19/2017 [facility] BMI Calculated 28.02 02/19/2017 [facility] Weight 76.364 02/19/2017 [facility] Height 165.1 cm 02/19/2017 [facility] Temperature Oral (F) 97.4 F 02/19/2017 [facility] Heart Rate 68 02/19/2017 [facility] Respitory Rate 20 02/19/2017 [facility] Systolic (mm Hg) 170 12/31/2016 [facility] Diastolic (mm Hg) 75 12/31/2016 [facility] Respitory Rate 20 12/31/2016 [facility] BMI Calculated 27.51 12/31/2016 [facility] Weight 75 12/31/2016 [facility] Height 165.1 cm 12/31/2016 [facility] Encounters Location Location Details Encounter Type Encounter Number Reason For Visit Attending Provider ADM Date DC Date Status Source [facility] [place] Out[facility] Diag Services [id number] Cayetano Santiago 11/26/2016 11/27/2016 [facility] Bedded Outpatient [id number] Kristian Mikealla 12/31/2016 12/31/2016 [facility] Emergency [id number] Wen Alcanter 02/19/2017 02/19/2017 [facility] Outpatient [id number] Cayetano Santiago 03/31/2017 04/01/2017 [facility] Procedures Procedure Code Date Perfomer Comments Source Arthroscopy of knee [id number] [facility] Back fusion<sup>1, 2</sup> [id number] back surgery 3xback surgery 4x [facility] Hysterectomy [id number] [facility] Tonsillectomy [id number] [facility]
--- NOTE | 2018-12-14 09:00 | NUR ---
0900 Received pt to [employer] Engineer prep Rm #[id number] Ambulatory. Identiferx2 Introduced self In for Peripheral angio, Dr Ochoa Rt leg due to pain .only c/o recently Sob 98%. Ra does has c/o slight anxiety. Dr Ochoa at bedside and reassurance given and decreased stimuli to room. Family at bedside limit x2 . Daughter Maura cell [phone]. Prepped in usual manner Iv#20 x1, started left wrist No s/s infiltration secured. Left pt bed low position call light at bedside Side rails up. No gross issues with pain,pallor or dysrhythmia. Report to Pierce PEREZ 2nd case to follow on Dr Ochoa service. jan/flaquito
--- NOTE | 2018-12-14 10:45 | NUR ---
1045 c/o valdes mid frontal 11/16 b/p up operating room surgical technologist spoke with pt regarding procedural flow. Report to Dr Gabriela MATOS 0.5mg Xanax po . Medicated po reminded to stay in bed, call light at bedside Bed in low position. Family remains at bedside. ds/rn
--- NOTE | 2018-12-14 13:45 | NUR ---
Report received from Smooth Zhao RN. review of recovery, VS trends, diet toleration, and discomfort. Pt allowed to bend right leg and bed tilted to promote discomfort. assume of care
--- NOTE | 2018-12-14 14:21 | NUR ---
Pt meets DC criteria. left forearm IV removed and tip appears intact. VS WNL. Pt denies pain, sob, or need at this time. Family at bedside. Review of discharge paperwork and follow up instructions. verbalized understanding. ambulated to bathroom to empty bladder. No change in groin assess. Pt to wheelchair and transported to front of hospital. Transferred to private vehicle under own strength w/o incident with DC paperwork in hand. - cgf
--- NOTE | 2018-12-16 00:06 | Operative Report ---
DATE OF PROCEDURE: SURGEON: Sharan Ochoa DO PROCEDURES PERFORMED: 1. Conscious sedation, 30 minutes. 2. Abdominal aortography. 3. Third-order peripheral angiography. 4. Unilateral extremity angiography. PRE-PROCEDURE DIAGNOSIS: Leg pain. POST-PROCEDURE DIAGNOSIS: Nonobstructive peripheral artery disease. ESTIMATED BLOOD LOSS: Less than 10 mL. PROCEDURE DETAILS: After informed consent was obtained, the patient was brought to the cardiac catheterization laboratory in a fasting and nonsedated state. Bilateral groins were prepped and draped in the usual sterile fashion. A 2% lidocaine was infiltrated over the left anterior groin for local anesthesia. Using micropuncture needle, the left common femoral artery was accessed via modified Seldinger technique. Abdominal aortography was performed using Omni Flush catheter. Next, this catheter was taken into the third order peripheral angiography position and angiographic images were performed. Everything was removed from the body. Hemostasis was achieved via Mynx device. The patient tolerated the procedure well. No immediate complications. Transported back to her room in stable condition. PROCEDURAL FINDINGS: 1. The abdominal aorta is free of aortic aneurysm or dissection. 2. Iliac system is patent with mild diffuse disease. 3. The right femoral and popliteal system is patent with mild disease. 4. There is 3-vessel runoff with mild diffuse disease. DO PRAVEENA Gupta/MODL /[id number]
== END | disposition home or self-care (01) ==
LOC: CATH LAB 08:25
PROVIDERS: ATTEND Internal Medicine Cardiovascular Disease
DX: I73.9 Peripheral vascular disease, unspecified (principal); J44.9 Chronic obstructive pulmonary disease, unspecified; Z01.812 Encounter for preprocedural laboratory examination; Z68.33 Body mass index [BMI] 33.0-33.9, adult; Z87.891 Personal history of nicotine dependence; Z82.49 Family history of ischemic heart disease and other diseases of the circulatory system
CPT/HCPCS: 36247; 36415; 75625; 75710; 80053; 85025; 85610; C1760; C1769 ×2; C1887; J0360; J2001; J2250; J7030; Q9967

== ENCOUNTER 2019-09-22 23:55 | Emergency (ER) | payer MEDICARE, OTHER ==
[~2019-09-22] VITALS: Ht 165.1 cm; Wt 78.5 kg
[~2019-09-22 23:55] MED LIST changes: -ALPRAZOLAM 0.5 MG TAB ONE; -FENTANYL CITRATE/PF 100MCG/2 ML INJ ONE; -HEPARIN SOD/SOD CHLORIDE 2,000 ML ONE; -HYDRALAZINE HCL 20 MG/ML VIAL ONE; -IOPAMIDOL 300MG/ML 100 ML INFUS..BTL IV ONE; -LIDOCAINE HCL 2% LOCAL 20 ML VIAL ONE; -MIDAZOLAM HCL 2 MG/2 ML VIAL ONE; -SODIUM CHLORIDE 0.9% 1000ML 1,000 ML ONE
[2019-09-23] MEDS ORDERED: TRAMADOL HCL 50 MG TAB PO ONE (02:15)
[2019-09-23 02:45] VITALS: BP 162/83
== END 2019-09-23 03:01 | disposition home or self-care (01) ==
LOC: ER 23:55
DX: S16.1XXA Strain of muscle, fascia and tendon at neck level, initial encounter (principal)
CPT/HCPCS: 99283

== ENCOUNTER 2020-05-13 01:51 | Emergency (ER) | payer MEDICARE, OTHER ==
[~2020-05-13] VITALS: Ht 162.6 cm; Wt 73.9 kg
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
--- OUTSIDE RECORDS SUMMARY | 2020-05-13 02:44 | XMS REPORT | Clinical Summary ---
Author Author [facility]AN [facility] Organization [facility] Address Unknown Phone Unavailable Care Team Providers Care Revenue Field Agent Name Role Phone Jorge L Sue MD PCP [phone] Allergies Comments Active Allergy Reactions Severity Noted [...] Problem Noted Date Left renal mass 2017 Social History Date Tobacco Use Types Packs/Day [...] file Plan of Treatment Not on file Results Not on fileafter 05/13/2019 Insurance Payer Benefit Subscriber ID Type Phone Address Plan / Group MEDICARE MEDICARE A xxxxxxxxxxx Medicare B [facility] UN xxxxxxxxx CARE [employer] INDEMNITY [phone] Taylor Evans Personal/F Self 1940 [id number]reu (Home) [place] [address] Advance Directives For more information, please contact: [facility] [address] [place], [place] [id number] Date Inactivated Comments Code Status Date Activated 03/07/2017 5:33 PM Full Code 2017 10:37 PM This code status was determined by: Patient
--- OUTSIDE RECORDS SUMMARY | 2020-05-13 02:44 | XMS REPORT | Continuity of Care Document ---
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 HospitalBUN/Creatinine Yiitc2358-55-90 14:54:00* Test Item Value Reference Range Interpretation Comments BUN/Creatinine Ratio (test code = 3097-3) 30 6-25 H [facility] HospitalEstimat Glomerular Filtration Rate 2018-12-12 14:54:00* Test Item Value Reference Range Interpretation Comments Estimat Glomerular Filtration Rate (test code = 326961053) > 60 >60 Ranges were taken from the National Kidney Disease Education Program and the [facility] literature.Reference ranges:60 or greater: Xeiyxd30-88 ( for 3 consecutive months): Chronic kidney disease 15 or less: Kidney failureJohn Peter Smith HospitalGlucose Tghlc1936-85-84 14:54:00* Test Item Value Reference Range Interpretation Comments Glucose Level (test code = UQJ0525) 52 74-118 LL Results repeated and faxed to Dr. Sharan Ochoa @ at 1451 on 01/25 by DUSTIN SWAN. Read back and verified.[facility] HospitalCalcium Ipszy9442-75-24 14:54:00* Test Item Value Reference Range Interpretation Comments Calcium Level (test code = 79181-5) 10.3 8.4-10.2 H [facility] HospitalTotal Ryntpjyns1717-49-30 14:54:00* Test Item Value Reference Range Interpretation Comments Total Bilirubin (test code = 1975-2) 0.2 0.2-1.2 [facility] HospitalAspartate Amino Transf (AST/SGOT) 2018-12-12 14:54:00* Test Item Value Reference Range Interpretation Comments Aspartate Amino Transf (AST/SGOT) (test code = Aspartate Amino Transf (AST/SGOT)) 25 5-34 [facility] HospitalAlanine Aminotransferase (ALT/SGPT) 2018-12-12 14:54:00* Test Item Value Reference Range Interpretation Comments Alanine Aminotransferase (ALT/SGPT) (test code = 1742-6) 24 0-55 [facility] HospitalTotal Xanyymg5415-25-33 14:54:00* Test Item Value Reference Range Interpretation Comments Total Protein (test code = 2885-2) 6.8 6.5-8.1 [facility] HospitalAlbumin2019-05-06 14:54:00* Test Item Value Reference Range Interpretation Comments Albumin (test code = 1751-7) 4.0 3.5-5.0 [facility] HospitalGlobulin2019-05-06 14:54:00* Test Item Value Reference Range Interpretation Comments Globulin (test code = 51456-0) 2.8 2.3-3.5 [facility] HospitalAlbumin/Globulin Awsot4542-28-33 14:54:00 * Test Item Value Reference Range Interpretation Comments Albumin/Globulin Ratio (test code = 1759-0) 1.4 0.8-2.0 [facility] HospitalAlkaline Gbyugaduxfy8532-59-97 14:54:00* Test Item Value Reference Range Interpretation Comments Alkaline Phosphatase (test code = 6768-6) 131 40-150 [facility] HospitalProthrombin Rtvv6408-55-25 14:21:00* Test Item Value Reference Range Interpretation Comments Prothrombin Time (test code = 5902-2) 12.7 11.9-14.5 [facility] HospitalProthromb Time International Ratio 2018-12-12 14:21:00* Test Item Value Reference Range Interpretation Comments Prothromb Time International Ratio (test code = 6301-6) 0.91 Oral Anticoagulant Therapy INR Values:1. Low Intensity Therapy 1.5 - 2.02 . Moderate Intensity Therapy 2.0 - 3.03. High Intensity Therapy(1) 2.5 - 3. 54. High Intensity Therapy(2) 3.0 - 4.05. Panic Value INR > 5.0 [facility] HospitalWhite Blood Udbus2808-52-91 14:19:00* Test Item Value Reference Range Interpretation Comments White Blood Count (test code = 6690-2) 4.75 4.8-10.8 L [facility] HospitalRed Blood Zopdz0099-69-45 14:19:00* Test Item Value Reference Range Interpretation Comments Red Blood Count (test code = 789-8) 4.03 3.6-5.1 [facility] HospitalHemoglobin2019-05-06 14:19:00* Test Item Value Reference Range Interpretation Comments Hemoglobin (test code = 73380-0) 12.8 12.0-16.0 [facility] HospitalHematocrit2019-05-06 14:19:00* Test Item Value Reference Range Interpretation Comments Hematocrit (test code = 4544-3) 38.7 34.2-44.1 [facility] HospitalMean Corpuscular Soizwj4539-41-25 14:19:00* Test Item Value Reference Range Interpretation Comments Mean Corpuscular Volume (test code = 787-2) 96.0 81-99 [facility] HospitalMean Corpuscular Ugfgjzxxrm7822-36-48 14:19:00* Test Item Value Reference Range Interpretation Comments Mean Corpuscular Hemoglobin (test code = 785-6) 31.8 28-32 [facility] HospitalMean Corpuscular Hemoglobin Concent 2018-12-12 14:19:00* Test Item Value Reference Range Interpretation Comments Mean Corpuscular Hemoglobin Concent (test code = 786-4) 33.1 31-35 [facility] HospitalRed Cell Distribution Vfmlo3150-33-45 14:19:00* Test Item Value Reference Range Interpretation Comments Red Cell Distribution Width (test code = 68357-3) 12.1 11.7 -14.4 [facility] HospitalPlatelet Vxxhf6517-80-70 14:19:00* Test Item Value Reference Range Interpretation Comments Platelet Count (test code = 777-3) 146 140-360 [facility] HospitalNeutrophils (%) (Auto)2018-12-12 14:19:00 * Test Item Value Reference Range Interpretation Comments Neutrophils (%) (Auto) (test code = 59139-1) 70.0 38.7-80.0 [facility] HospitalLymphocytes (%) (Auto)2018-12-12 14:19:00 * Test Item Value Reference Range Interpretation Comments Lymphocytes (%) (Auto) (test code = 736-9) 14.9 18.0-39.1 L [facility] HospitalMonocytes (%) (Auto)2018-12-12 14:19:00* Test Item Value Reference Range Interpretation Comments Monocytes (%) (Auto) (test code = 5905-5) 11.6 4.4-11.3 H [facility] HospitalEosinophils (%) (Auto)2018-12-12 14:19:00 * Test Item Value Reference Range Interpretation Comments Eosinophils (%) (Auto) (test code = 713-8) 2.7 0.0-6.0 [facility] HospitalBasophils (%) (Auto)2018-12-12 14:19:00* Test Item Value Reference Range Interpretation Comments Basophils (%) (Auto) (test code = 706-2) 0.4 0.0-1.0 [facility] HospitalIM GRANULOCYTES %2018-12-12 14:19:00* Test Item Value Reference Range Interpretation Comments IM GRANULOCYTES % (test code = IM GRANULOCYTES %) 0.4 0.0- 1.0 [facility] HospitalNeutrophils # (Auto)2018-12-12 14:19:00* Test Item Value Reference Range Interpretation Comments Neutrophils # (Auto) (test code = 751-8) 3.3 2.1-6.9 [facility] HospitalLymphocytes # (Auto)2018-12-12 14:19:00* Test Item Value Reference Range Interpretation Comments Lymphocytes # (Auto) (test code = 98486-5) 0.7 1.0-3.2 L [facility] HospitalMonocytes # (Auto)2018-12-12 14:19:00* Test Item Value Reference Range Interpretation Comments Monocytes # (Auto) (test code = 742-7) 0.6 0.2-0.8 [facility] HospitalEosinophils # (Auto)2018-12-12 14:19:00* Test Item Value Reference Range Interpretation Comments Eosinophils # (Auto) (test code = 711-2) 0.1 0.0-0.4 [facility] HospitalBasophils # (Auto)2018-12-12 14:19:00* Test Item Value Reference Range Interpretation Comments Basophils # (Auto) (test code = 704-7) 0.0 0.0-0.1 [facility] HospitalAbsolute Immature Granulocyte (auto 2018-12-12 14:19:00* Test Item Value Reference Range Interpretation Comments Absolute Immature Granulocyte (auto (aviva t code = Absolute Immature Granulocyte (auto) 0.02 0-0.1 [facility] HospitalCTA ABD/PEL/RUN ISF5874-11-49 07:34:00 [facility] [address] [place] [address] Patient Name: REENA EVANS MR #: [id number] : 1939 Age/Sex: 78/F Req #: [id number] Adm Physician: Ordered by: TALITA ARRIAGA MD Report #: [id number] Location: CT Room/Bed: Procedure: [id number] CT/CTA ABD/PEL/RUN OFF Exam Date: 11/29/18 Exam Time : 1626 REPORT STATUS: Signed CT angiogram of the abdomen pelvis with bilateral lower extremity runoffs. Ind ication: Peripheral arterial disease TECHNIQUE: Abdomen, pelvis, and bila teral lower extremities were scanned utilizing a multidetector helical scanner from the inferior lungs to the level of bilateral feet after administration o f IV contrast. Coronal and sagittal reformations were obtained. CT Angiogram p rotocol was performed. 3D reconstructions were also performed. IV CONTRAST: 100 mL of Isovue 370 RADIATION DOSE: Total DLP: 1026 .2 mGy*cm Dose modulation, iterative reconstruction, and/or weight based ad justment of the mA/kV was utilized to reduce the radiation dose to as low as r easonably achievable. COMPLICATIONS: None COMPARISON: CT abdomen/pelvis without contrast 02/18/2017. Images from CT abdomen/pelvis from 09/23/2017, although the report was not available for review at the time dicta tion. FINDINGS: VESSELS Moderate to extensive calcified and non-calcifi ed atherosclerotic plaque throughout the abdominal aorta and its major branche s. No evidence of abdominal aortic aneurysm or dissection. There is focal mild stenosis in the infrarenal abdominal aorta (series 3, image 53). The ce liac artery, SMA, NURY, and bilateral renal arteries are patent with multifocal mild stenoses. Bilateral common and internal iliac arteries demonstrate a therosclerotic changes with multifocal mild to moderate stenoses. Atherosclero tic changes in the bilateral external iliac arteries with multifocal mild sten oses. Right lower extremity: Atherosclerotic changes with multifocal mil d stenoses within the right common femoral artery. Atherosclerotic changes res ults in mild multifocal stenoses within the right superficial and deep femoral arteries and popliteal artery. Atherosclerotic changes with possible moderate focal stenosis in the proximal anterior tibial artery although evaluation is limited due to calcification (Series 3, image 222) which is otherwise unremark able. Mild atherosclerotic changes within the tibioperoneal trunk, posterior t ibial arteries, and peroneal artery with scattered mild stenoses. The distal v essels are not well opacified but there is likely a three-vessel runoff to the foot. Left lower extremity: Atherosclerotic changes with multifocal mil d stenoses within the left common femoral artery. Atherosclerotic changes resu lts in mild multifocal stenoses within the left superficial femoral and deep f emoral arteries and popliteal artery. Mild atherosclerotic changes within the tibioperoneal trunk, anterior and posterior tibial arteries, and peroneal stanley ry with scattered mild stenoses. The distal vessels are not well opacified but there is likely a three-vessel runoff to the foot. Abdomen and Pelvis: LOWER THORAX: There are clustered tree-in-bud nodules within the dependent r ight middle lobe, for example on series 3, image 11 and right lower lobe on im age 6. Patchy dependent atelectasis. Scattered emphysematous changes of the kirti ng bases. HEPATOBILIARY: No evidence of focal lesion. No biliary ductal di lation. GALLBLADDER: No radio-opaque stones or sludge. No wall thickening . SPLEEN: No splenomegaly. PANCREAS: No focal masses or ductal dilata tion. ADRENALS: Unchanged 1.9 cm right adrenal nodule, previously charact erized as adenoma. Unchanged mild thickening of the left adrenal gland. K IDNEYS/URETERS: Kidneys enhance symmetrically. No evidence of hydronephrosis, solid mass, or stone. Status post partial left nephrectomy. Bilateral renal cy sts. Additional subcentimeter bilateral renal hypodensities are too small to c haracterize, but likely represent cysts, unchanged since CT abdomen/pelvis fro m 09/23/2017. GI TRACT: No evidence of wall thickening or distension. There are post surgical changes of appendectomy. There is a duodenal diverticulum. PELVIC ORGANS/BLADDER: The bladder is unremarkable in appearance. Status po st hysterectomy. LYMPH NODES: No lymphadenopathy. PERITONEUM / RETRO PERITONEUM: No free air or fluid. BONES AND SOFT TISSUES: No acute osseous abnormality. No suspicious lytic or blastic lesions. Degenerative changes of t he visualized spine. IMPRESSION: 1. Moderate to extensive atheroscleroti c changes within the abdominal aorta and branch vessels without significant st enosis. No evidence of aortic dissection or aneurysm. 2. Atherosclerotic changes with mild to moderate stenoses within the bilateral common iliac arter ies and mild stenoses in the internal and external iliac arteries. 3. Ath erosclerotic changes with mild multifocal stenoses in the bilateral lower ext remity arterial vasculature. Possible focal moderate stenosis in the proximal right anterior tibial artery. The distal vessels are not well opacified but t here are likely three vessel runoffs to bilateral feet. 4. Status post p artial left nephrectomy with unchanged appearance of bilateral renal cysts and subcentimeter renal hypodensities. No evidence of metastatic disease in the a bdomen or pelvis. 5. Clustered tree in bud nodules in the dependent right m iddle and lower lobes, likely reflecting aspiration. Followup chest CT may be considered in 3 months to evaluate for resolution. Signed by: Dr. Natalia Burnham MD on 11/30/2018 8:14 AM Dictated By: AMADO BURNHAM MD Electronical ly Signed By: AMADO BURNHAM MD on 11/30/18813 Transcribed By: MANNIE on 813 COPY TO: TALITA ARRIAGA MD RAD, CHEST, 2 [id number] 11:26:00Reason for Exam:->Renal cell carcinoma of left kidneyFINAL REPORT EXAMINATION: RAD, CHEST, 2 VIEWS INDICATION: [...] the left hilar remains unchanged and may r eflect prominent left pulmonary artery. BONES AND SOFT TISSUES: No acute osseou s lesion. Soft tissues are unremarkable. UPPER ABDOMEN: No free air under the d iaphragm. IMPRESSION: No acute thoracic abnormality. Signed: Alicia Duncan MDReport Verified Date/Time: 10/13/2018 11:26:10 Reading Location: [facility] Rad Reading Room [address] [place] [address] , OHRVQNX9217-35-74 10:39:00FINAL REPORT EXAM: CT Abdomen WITHOUT and WITH contrast INDICATION: Renal mass c64.2 COMPARISON: September 23, 2017TECHNIQUE: Abdomen was scanned utilizing a multidetector helical scanner from the lung base to the iliac crest before and after administration of IV contrast. Coronal and sagittal reformations were obtained. Renal mass protocol was performed. Scan was performe d pre-, nephrographic, and 4 minute delayed phase. IV CONTRAST: 150 mL of Om nipaque 300 ORAL CONTRAST: Water COMPLICATIONS: None RADIATION DO SE: Total DLP: 2103 mGy*cm Estimated effective dose: (DLP x 0.015 x size factor) mSv CTDIvol has been reviewed. It is below the limits set by the [facility] Protocol Committee (RPC). FINDINGS: LINES and TUBES: None. LOWER THORAX: Unremarkable HEPATOBILIARY: No focal hepatic lesions. No biliary ductal d ilation. GALLBLADDER: No radio-opaque stones or sludge. No wall thickening. SP MICKY: No splenomegaly. PANCREAS: No focal masses or ductal dilatation. ADRENA LS: Bilateral lipid rich adenoma largest on the right 1.8 cm. KIDNEYS/URETER S: Partial left nephrectomy to the superior pole of the left kidney. No recurren t or new enhancing mass. Bilateral simple renal cysts, largest on the left kidne y measuring 1.6 cm. GI TRACT: Moderate amount of stool throughout the colon. Sm all duodenal diverticulum. LYMPH NODES: No lymphadenopathy. VESSELS: Unrema rkable. PERITONEUM / RETROPERITONEUM: No free air or fluid. BONES: Prior posteri or lumbar spine decompression. No osseous metastatic lesion. SOFT TISSUES: Unrem arkable. IMPRESSION: 1.Partial left nephrectomy. No recurrent mass, adenopathy, or metastasis.2.Simple bilateral renal cysts.3.Bilateral lipid rich benign adrenal adenoma. Signed: Steven Blood MDReport Verified Date/Time: 10:39:40 -GEXWJDJXBX7219-61-04 10:09:00* Test Item Value Reference Range Interpretation Comments POC-CREATININE (HITESH) (test code = 1859) 0.6 mg/dL 0.6-1.3 TESTED AT [facility] [address] [facility] [address] POC-EGFR (HITESH) (test code = 1860) 96 mL/min/1.73M2 MRA NECK [id number] 11:54:00 [place] [address] Patient Name: REENA EVANS MR #: [id number] : 1940 Age/Sex: 77/F Req #: [id number] Adm Physician: TALITA ARRIAGA MD Ordered by: TALITA ARRIAGA MD Report #: [id number] Location: MED/SURG2 [facility] Procedure: [id number] MRI/MRA NECK WO Exam Date: Exam Time: REPO RT STATUS: Signed Examination: MRA NECK WITHOUT CONTRAST History: Imbalance . Dizziness. Comparison studies: None Technique: 2-D ofll-pj-wfehxp MR an giogram of the cervical circulation was obtained. MIP images of the arteries w ere isolated into the right and left cervical circulations. Degree of s tenosis at the carotid bulbs, if present, will be calculated using NASCET crit eria where the smallest diameter at the location of stenosis is compared to th e diameter of the more distal non-diseased vessel lumen. Findings: Aor tic arch: Motion artifact limits evaluation. Internal carotid arteries: Evaluation of the origins of the common carotid arteries is limited due to m otion artifact. The cervical carotid bifurcations or in the cervical segments are patent. Vertebral arteries: The origins of the vertebral arteries i s difficult to evaluate due to motion artifact. The bilateral cervical segment s (V1-V3) are patent. IMPRESSION: Despite limitation, no cervical o r intracranial arterial stenosis or occlusion. Signed by: Dr. Jeanie hurst M.D. on 02/14/2018 12:02 PM Dictated By: JEANIE Rebollar 1202 Trans cribed By: MANNIE on 02/14/18 1202 COPY TO: TALITA ARRIAGA MD MRI BRAIN [id number] 11:51:00 [place] [address] Patient Name: REENA EVANS MR #: [id number] : 1940 Age/Sex: 77/F Req #: [id number] Adm Physician: TALITA ARRIAGA MD Ordered by: TALITA ARRIAGA MD Report #: [id number] Location: MED/SURG2 Room/Bed: 204-1 Procedure: [id number] MRI/MRI BRAIN WO Exam Date: Exam Time: REP ORT STATUS: Signed Examination: MRI BRAIN WITHOUT CONTRAST History: Edith kearney. Comparison studies: Brain MRI performed February 19, 2016 Technique: Sa gittal T2; axial DWI, FLAIR, GRE or SWI, T1, Coronal FLAIR. Intravenous contra st: None Findings: Scalp: No abnormal signal. No masses. Bone marro w: Normal in signal intensity. Brain volume: Adequate for age. No volume l oss. Ventricles: Normal in size and configuration. No hydrocephalus. Extra-axial spaces: No abnormalities. Parenchyma: There are few scatter ed patchy areas areas of T2/FLAIR hyperintensity in the periventricular and cruz bcortical and pontine white matter, nonspecific. No masses, hemorrhage, or ac [place]ct[place] vascular insults. Suprasellar and sellar region: No abnormalities. Cr aniocervical junction: No abnormalities. The foramen magnum is patent. No Zane ri malformations. Vessels: Normal flow-voids in the arteries and sinuses. Additional findings:None. IMPRESSION: No acute abnormalities. Un changed minimal chronic microvascular ischemic change when compared to prior b rain MRI performed February 19, 2016. Signed by: Dr. Jeanie Hall M.D. on 02/14/2018 11:53 AM Dictated By: JEANIE IZAGUIRRE MD Electronicall y Signed By: JEANIE IZAGUIRRE MD on 02/14/18 2649 Transcribed By: LUIS VÁZQUEZ on 02/14/18 1152 COPY TO: TALITA ARRIAGA MD Triglycerides [id number] 07:17:00* Test Item Value Reference Range Interpretation Comments Triglycerides Level (test code = 2571-8) 95 0-149 [facility] HospitalCholesterol Bidux5100-60-58 07:17:00* Test Item Value Reference Range Interpretation Comments Cholesterol Level (test code = 2093-3) 171 0-199 Less than 200 mg/dL Low Anfe716 - 239 mg/dL Borderline Fwni568 m g/dl and greater High Risk [facility] HospitalLDL Zudgrpvqyqd2893-64-05 07:17:00* Test Item Value Reference Range Interpretation Comments LDL Cholesterol (test code = 2089-1) 89 60-130 [facility] HospitalHDL Pqetrafyrgv5662-69-08 07:17:00* Test Item Value Reference Range Interpretation Comments HDL Cholesterol (test code = 2085-9) 63 40-60 H [facility] HospitalCholesterol/HDL Mhbuq0299-86-45 07:17:00 * Test Item Value Reference Range Interpretation Comments Cholesterol/HDL Ratio (test code = 9830-1) 2.7 3.0-3.6 L [facility] HospitalCreatine Kinase [id number] 05:34:00* Test Item Value Reference Range Interpretation Comments Creatine Kinase MB (test code = 33303-0) 1.20 0-5.0 [facility] HospitalTroponin [id number] 05:34:00* Test Item Value Reference Range Interpretation Comments Troponin I (test code = XGN3104) -0.001 0-0.300 [facility] Mewdc8326-91-09 05:15:00* Test Item Value Reference Range Interpretation Comments Sodium Level (test code = 2951-2) 138 136-145 [facility] HospitalPotassium Ymgac9551-75-69 05:15:00* Test Item Value Reference Range Interpretation Comments Potassium Level (test code = 2823-3) 4.2 3.5-5.1 [facility] HospitalChloride Rflyg2806-62-67 05:15:00* Test Item Value Reference Range Interpretation Comments Chloride Level (test code = 2075-0) 107 98-107 [facility] HospitalCarbon Dioxide Ywpwa9481-25-01 05:15:00* Test Item Value Reference Range Interpretation Comments Carbon Dioxide Level (test code = 2028-9) 24 22-29 [facility] HospitalAnion Ufd4075-37-15 05:15:00* Test Item Value Reference Range Interpretation Comments Anion Gap (test code = 66405-1) 11.2 8-16 [facility] HospitalBlood Urea Sgwjoxjc4519-14-37 05:15:00* Test Item Value Reference Range Interpretation Comments Blood Urea Nitrogen (test code = 3094-0) 16 7-26 [facility] HospitalCreatinine2018-07-06 05:15:00* Test Item Value Reference Range Interpretation Comments Creatinine (test code = 2160-0) 0.62 0.57-1.11 [facility] HospitalBUN/Creatinine Fbnzl6220-37-46 05:15:00* Test Item Value Reference Range Interpretation Comments BUN/Creatinine Ratio (test code = 3097-3) 26 6-25 H [facility] HospitalEstimat Glomerular Filtration Rate 2018-02-11 05:15:00* Test Item Value Reference Range Interpretation Comments Estimat Glomerular Filtration Rate (test code = 51744-3) 60- >60 Ranges were taken from the National Kidney Disease Education Program and the [facility] Foundation literature.Reference ranges:60 or greater: Iclfad14-57 ( for 3 consecutive months): Chronic kidney disease 15 or less: Kidney failureJohn Peter Smith HospitalGlucose Ftuty7922-83-04 05:15:00* Test Item Value Reference Range Interpretation Comments Glucose Level (test code = WYQ4487) 92 74-118 [facility] HospitalCalcium Oxjss4610-73-53 05:15:00* Test Item Value Reference Range Interpretation Comments Calcium Level (test code = 51657-8) 8.9 8.4-10.2 [facility] HospitalPhosphorus [id number] 05:15:00* Test Item Value Reference Range Interpretation Comments Phosphorus Level (test code = NQB3455) 2.9 2.3-4.7 [facility] HospitalMagnesium Xbbkm1100-34-20 05:15:00* Test Item Value Reference Range Interpretation Comments Magnesium Level (test code = 06350-1) 1.9 1.3-2.1 [facility] HospitalCreatine Fbchix1640-25-49 05:15:00* Test Item Value Reference Range Interpretation Comments Creatine Kinase (test code = 2157-6) 46 29-168 [facility] HospitalWhite Blood Vddpb8138-71-12 04:53:00* Test Item Value Reference Range Interpretation Comments White Blood Count (test code = 6690-2) 4.30 4.8-10.8 L [facility] HospitalRed Blood Mfnpk6807-57-46 04:53:00* Test Item Value Reference Range Interpretation Comments Red Blood Count (test code = 789-8) 4.00 3.6-5.1 [facility] HospitalHemoglobin2018-07-06 04:53:00* Test Item Value Reference Range Interpretation Comments Hemoglobin (test code = 43187-7) 12.8 12.0-16.0 [facility] HospitalHematocrit2018-07-06 04:53:00* Test Item Value Reference Range Interpretation Comments Hematocrit (test code = 4544-3) 38.1 34.2-44.1 [facility] HospitalMean Corpuscular Wowycv5656-31-91 04:53:00* Test Item Value Reference Range Interpretation Comments Mean Corpuscular Volume (test code = 787-2) 95.3 81-99 [facility] HospitalMean Corpuscular Ghnirtkdks0626-32-59 04:53:00* Test Item Value Reference Range Interpretation Comments Mean Corpuscular Hemoglobin (test code = 785-6) 32.0 28-32 [facility] HospitalMean Corpuscular Hemoglobin Concent 2018-02-11 04:53:00* Test Item Value Reference Range Interpretation Comments Mean Corpuscular Hemoglobin Concent (test code = 786-4) 33.6 31-35 [facility] HospitalRed Cell Distribution Lqshu5848-44-08 04:53:00* Test Item Value Reference Range Interpretation Comments Red Cell Distribution Width (test code = 88891-8) 12.1 11.7 -14.4 [facility] HospitalPlatelet Naxpt9048-03-77 04:53:00* Test Item Value Reference Range Interpretation Comments Platelet Count (test code = 777-3) 139 140-360 L [facility] HospitalNeutrophils (%) (Auto)2018-02-11 04:53:00 * Test Item Value Reference Range Interpretation Comments Neutrophils (%) (Auto) (test code = 08509-9) 56.3 38.7-80.0 [facility] HospitalLymphocytes (%) (Auto)2018-02-11 04:53:00 * Test Item Value Reference Range Interpretation Comments Lymphocytes (%) (Auto) (test code = 736-9) 28.4 18.0-39.1 [facility] HospitalMonocytes (%) (Auto)2018-02-11 04:53:00* Test Item Value Reference Range Interpretation Comments Monocytes (%) (Auto) (test code = 5905-5) 12.1 4.4-11.3 H [facility] HospitalEosinophils (%) (Auto)2018-02-11 04:53:00 * Test Item Value Reference Range Interpretation Comments Eosinophils (%) (Auto) (test code = 713-8) 2.1 0.0-6.0 [facility] HospitalBasophils (%) (Auto)2018-02-11 04:53:00* Test Item Value Reference Range Interpretation Comments Basophils (%) (Auto) (test code = 706-2) 0.9 0.0-1.0 [facility] HospitalIM GRANULOCYTES %2018-02-11 04:53:00* Test Item Value Reference Range Interpretation Comments IM GRANULOCYTES % (test code = IM GRANULOCYTES %) 0.2 0.0- 1.0 [facility] HospitalNeutrophils # (Auto)2018-02-11 04:53:00* Test Item Value Reference Range Interpretation Comments Neutrophils # (Auto) (test code = 751-8) 2.4 2.1-6.9 [facility] HospitalLymphocytes # (Auto)2018-02-11 04:53:00* Test Item Value Reference Range Interpretation Comments Lymphocytes # (Auto) (test code = 25276-0) 1.2 1.0-3.2 [facility] HospitalMonocytes # (Auto)2018-02-11 04:53:00* Test Item Value Reference Range Interpretation Comments Monocytes # (Auto) (test code = 742-7) 0.5 0.2-0.8 [facility] HospitalEosinophils # (Auto)2018-02-11 04:53:00* Test Item Value Reference Range Interpretation Comments Eosinophils # (Auto) (test code = 711-2) 0.1 0.0-0.4 [facility] HospitalBasophils # (Auto)2018-02-11 04:53:00* Test Item Value Reference Range Interpretation Comments Basophils # (Auto) (test code = 704-7) 0.0 0.0-0.1 [facility] HospitalAbsolute Immature Granulocyte (auto 2018-02-11 04:53:00* Test Item Value Reference Range Interpretation Comments Absolute Immature Granulocyte (auto (aviva t code = Absolute Immature Granulocyte (auto) 0.01 0-0.1 [facility] HospitalTISSUE [id number] 12:06:00Surgical Pathology Report Case: [id number] Authorizing Provider: Christophe Franklin MD Collected: 2017 1743 Ordering Location: [facility] Received: 03/08/2017 0814 SERVICES Pathologist: Dian Quigley MD Specimen: Mass, left renal mass A. KIDNEY, LEFT, PARTIAL NEPHRECTOMY: - PAPILLARY RENAL CELL CARCINOMA, PETER NUCLEAR GRADE 3 - TUMOR SIZE: 2.0 CM IN GREATEST D IMENSION - TUMOR FOCALLY INVADES INTO THE PERINEPHRIC ADIPOSE TISSUE - PARENCH YMAL INKED MARGIN, FREE OF MALIGNANCY - LYMPHOVASCULAR INVASION IS NOT IDENTIFI ED - SARCOMATOID FEATURES, NOT IDENTIFIED - NECROSIS, NOT IDENTIFIED - UNINVO LVED KIDNEY WITH FOCAL GLOBAL GLOMERULOSCLEROSIS - NO SIGNIFICANT INTERSTITIAL INFLAMMATION (OR) FIBROSIS - PATHOLOGIC STAGING : [id number] emma d by Dian Quigley MD on 03/16/2017 at 12:06 PMKIDNEY: Nephrectomy, Partia l or Radical (Kidney Res - All Specimens) Specimen Site: Kidney structureS PECIMEN Procedure: Partial nephrectomy Specimen Laterality: Left Adrienne or Site: Upper pole Tumor Focality: Unifocal Macroscopic Extent of Adrienne or: Tumor limited to kidneyTUMOR Histologic Type: Papillary renal cell c arcinoma Sarcomatoid Features: Not identified Histologic Grade (Peter N uclear Grade): G3: Nuclei very irregular, approximately 20 microns; nucleoli large and prominentEXTENT Tumor Size (largest tumor if multiple): Greatest dimension (cm): 2.0 cm Additional Dimension (cm): 1.5 cm Additional D imension (cm): 1.5 cm Microscopic Tumor Extension: Tumor extension into perinephric tissue (beyond renal capsule)MARGINS Margin Status: Margins uni nvolved by invasive carcinomaACCESSORY FINDINGS Tumor Necrosis (any amount): Not identified Lymph-Vascular Invasion: Not identifiedSTAGE (pTNM) Prim radha Tumor (pT): pT3a: Tumor grossly extends into the renal vein or its segmen sherita (muscle containing) branches, or tumor invades perirenal and / or renal sinu s fat but not beyond Gerota's fascia Regional Lymph Nodes (pN): pNX: Region al lymph nodes cannot be assessed Status of Regional Lymph Nodes: No node s submitted or found Distant Metastasis (pM): Not applicableADDITIONAL NON- TUMOR Pathologic Findings in Nonneoplastic Kidney: Glomerular disease (spec anatoliy type): Focal global [id number] renal mass Left renal mass R eceived fresh labeled "mass", description "left renal mass" is a 3.0 x 2.5 x 2.5 cm left partial nephrectomy specimen. The capsular surface is purple-altamirano and fo francis ragged.The specimen is serially sectioned to reveal a 2.0 x 1.5 x 1.5 cm, ill-defined, esteves-white to yellow-orange, friable mass which focally abuts the p arenchymal resection margin and capsule.The surrounding uninvolved renal parench yma is dark-brown, homogeneous, dense and unremarkable.Ink code: Parenchymal res ection margin-black, capsule-blue.The specimen is entirely sequentially submitte d in cassettes A1-A7. DB/ew Performed.POCT-GLUCOSE [id number] 09:13:00* Test Item Value Reference Range Interpretation Comments POC-GLUCOSE METER (BEAKER) (test code = 1538) 100 mg/dL 70-110 TESTED AT [place] [id number] [facility] [address] BASIC METABOLIC [id number] 05:53:00* Test Item Value Reference Range Interpretation Comments SODIUM (BEAKER) (test code = 381) 133 meq/L 136-145 L POTASSIUM (BEAKER) (test code = 379) 5.0 meq/L 3.5-5.1 CHLORIDE (BEAKER) (test code = 382) 102 meq/L 98-107 CO2 (BEAKER) (test code = 355) 24 meq/L 22-29 BLOOD UREA NITROGEN (BEAKER) (test code = 354) 7 mg/dL 7-21 CREATININE (BEAKER) (test code = 358) 0.60 mg/dL 0.57-1.25 GLUCOSE RANDOM (BEAKER) (test code = 652) 97 mg/dL 70-105 CALCIUM (BEAKER) (test code = 697) 8.6 mg/dL 8.4-10.2 EGFR (BEAKER) (test code = 1092) 97 mL/min/1.73 sq m ESTIMATED GFR IS NOT ACCURATE CREATININE CLEARANCE IN PREDICTING GLOMERULAR FILTRATION RATE. ESTIMATED GFR IS NOT APPLICABLE FOR DIALYSIS PATIENTS. HEMOGLOBIN AND [id number] 05:23:00* Test Item Value Reference Range Interpretation Comments HEMOGLOBIN (BEAKER) (test code = 410) 12.5 GM/DL 11.2-15.7 HEMATOCRIT (BEAKER) (test code = 411) 37.7 % 34.1-44.9 POCT-GLUCOSE [id number] 12:46:00* Test Item Value Reference Range Interpretation Comments POC-GLUCOSE METER (BEAKER) (test code = 1538) 103 mg/dL 70-110 TESTED AT [facility] [address] [facility] [address] BASIC METABOLIC [id number] 06:24:00* Test Item Value Reference Range Interpretation Comments SODIUM (BEAKER) (test code = 381) 134 meq/L 136-145 L POTASSIUM (BEAKER) (test code = 379) 4.7 meq/L 3.5-5.1 CHLORIDE (BEAKER) (test code = 382) 103 meq/L 98-107 CO2 (BEAKER) (test code = 355) 22 meq/L 22-29 BLOOD UREA NITROGEN (BEAKER) (test code = 354) 11 mg/dL 7-21 CREATININE (BEAKER) (test code = 358) 0.64 mg/dL 0.57-1.25 GLUCOSE RANDOM (BEAKER) (test code = 652) 174 mg/dL 70-105 H CALCIUM (BEAKER) (test code = 697) 8.1 mg/dL 8.4-10.2 L EGFR (BEAKER) (test code = 1092) 90 mL/min/1.73 sq m ESTIMATED GFR IS NOT ACCURATE CREATININE CLEARANCE IN PREDICTING GLOMERULAR FILTRATION RATE. ESTIMATED GFR IS NOT APPLICABLE FOR DIALYSIS PATIENTS. HEMOGLOBIN AND [id number] 05:57:00* Test Item Value Reference Range Interpretation Comments HEMOGLOBIN (BEAKER) (test code = 410) 12.9 GM/DL 11.2-15.7 HEMATOCRIT (BEAKER) (test code = 411) 39.0 % 34.1-44.9 POCT-GLUCOSE [id number] 02:21:00* Test Item Value Reference Range Interpretation Comments POC-GLUCOSE METER (BEAKER) (test code = 1538) 216 mg/dL 70-110 H TESTED AT [facility] [address] [facility] [address] BASIC METABOLIC [id number] 19:10:00* Test Item Value Reference Range Interpretation Comments SODIUM (BEAKER) (test code = 381) 136 meq/L 136-145 POTASSIUM (BEAKER) (test code = 379) 3.7 meq/L 3.5-5.1 CHLORIDE (BEAKER) (test code = 382) 103 meq/L 98-107 CO2 (BEAKER) (test code = 355) 20 meq/L 22-29 L BLOOD UREA NITROGEN (BEAKER) (test code = 354) 10 mg/dL 7-21 CREATININE (BEAKER) (test code = 358) 0.65 mg/dL 0.57-1.25 GLUCOSE RANDOM (BEAKER) (test code = 652) 177 mg/dL 70-105 H CALCIUM (BEAKER) (test code = 697) 8.0 mg/dL 8.4-10.2 L EGFR (BEAKER) (test code = 1092) 88 mL/min/1.73 sq m ESTIMATED GFR IS NOT ACCURATE CREATININE CLEARANCE IN PREDICTING GLOMERULAR FILTRATION RATE. ESTIMATED GFR IS NOT APPLICABLE FOR DIALYSIS PATIENTS. HEMOGLOBIN AND [id number] 18:55:00* Test Item Value Reference Range Interpretation Comments HEMOGLOBIN (BEAKER) (test code = 410) 14.1 GM/DL 11.2-15.7 HEMATOCRIT (BEAKER) (test code = 411) 42.3 % 34.1-44.9 URINE [id number] 08:38:00* Test Item Value Reference Range Interpretation Comments CULTURE (BEAKER) (test code = 1095) <10,000 col/mL skin simon BASIC METABOLIC [id number] 11:21:00* Test Item Value Reference Range Interpretation Comments SODIUM (BEAKER) (test code = 381) 138 meq/L 136-145 POTASSIUM (BEAKER) (test code = 379) 4.8 meq/L 3.5-5.1 CHLORIDE (BEAKER) (test code = 382) 103 meq/L 98-107 CO2 (BEAKER) (test code = 355) 29 meq/L 22-29 BLOOD UREA NITROGEN (BEAKER) (test code = 354) 18 mg/dL 7-21 CREATININE (BEAKER) (test code = 358) 0.68 mg/dL 0.57-1.25 GLUCOSE RANDOM (BEAKER) (test code = 652) 86 mg/dL 70-105 CALCIUM (BEAKER) (test code = 697) 9.2 mg/dL 8.4-10.2 EGFR (BEAKER) (test code = 1092) 84 mL/min/1.73 sq m ESTIMATED GFR IS NOT ACCURATE CREATININE CLEARANCE IN PREDICTING GLOMERULAR FILTRATION RATE. ESTIMATED GFR IS NOT APPLICABLE FOR DIALYSIS PATIENTS. URINALYSIS W/ [id number] 11:12:00* Test Item Value Reference Range Interpretation Comments COLOR (BEAKER) (test code = 470) Yellow CLARITY (BEAKER) (test code = 469) Clear SPECIFIC GRAVITY UA (BEAKER) (test code = 468) 1.012 1.001-1 .035 PH UA (BEAKER) (test code = 467) 7.0 5.0-8.0 PROTEIN UA (BEAKER) (test code = 464) Negative Negative GLUCOSE UA (BEAKER) (test code = 365) Negative Negative KETONES UA (BEAKER) (test code = 371) Negative Negative BILIRUBIN UA (BEAKER) (test code = 462) Negative Negative BLOOD UA (BEAKER) (test code = 461) Negative Negative NITRITE UA (BEAKER) (test code = 465) Negative Negative LEUKOCYTE ESTERASE UA (BEAKER) (test code = 466) Negative Negat jes UROBILINOGEN UA (BEAKER) (test code = 463) 0.2 mg/dL 0.2-1.0 RBC UA (BEAKER) (test code = 519) < /HPF WBC UA (BEAKER) (test code = 520) 2 /HPF MUCUS (BEAKER) (test code = 1574) Few SQUAMOUS EPITHELIAL (BEAKER) (test code = 516) 11 /HPF SOURCE(BEAKER) (test code = 2795) PROTHROMBIN TIME/[id number] 11:08:00* Test Item Value Reference Range Interpretation Comments PROTIME (BEAKER) (test code = 759) 12.9 seconds 11.7-14.7 INR (BEAKER) (test code = 370) 1.0 <=5.9 RECOMMENDED COUMADIN/WARFARIN INR THERAPY RANGESSTANDARD DOSE: 2.0 - 3.0 Inclu kenisha: PROPHYLAXIS for venous thrombosis, systemic embolization; TREATMENT for pete ous thrombosis and/or pulmonary embolus.HIGH RISK: Target INR is 2.5-3.5 for pat ients with mechanical heart valves.[id number] 11:08:00* Test Item Value Reference Range Interpretation Comments PARTIAL THROMBOPLASTIN TIME (BEAKER) (test code = 760) 30.0 seconds 22.5-36.0 CBC W/PLT COUNT & AUTO [id number] 11:06:00* Test Item Value Reference Range Interpretation Comments WHITE BLOOD CELL COUNT (BEAKER) (test code = 775) 4.8 K/ L 4.0- 10.0 RED BLOOD CELL COUNT (BEAKER) (test code = 761) 4.35 M/ L 4.00-5 .00 HEMOGLOBIN (BEAKER) (test code = 410) 15.3 GM/DL 12.0-15.0 H HEMATOCRIT (BEAKER) (test code = 411) 43.7 % 36.0-45.0 MEAN CORPUSCULAR VOLUME (BEAKER) (test code = 753) 101.0 fL 82. 0-99.0 H MEAN CORPUSCULAR HEMOGLOBIN (BEAKER) (test code = 751) 35.1 pg 27.0-33.0 H MEAN CORPUSCULAR HEMOGLOBIN CONC (BEAKER) (test code = 752) 34.9 GM/DL 32.0-36.0 RED CELL DISTRIBUTION WIDTH (BEAKER) (test code = 412) 10.8 % 10.3-14.2 PLATELET COUNT (BEAKER) (test code = 756) 141 K/CU MM 150-430 L MEAN PLATELET VOLUME (BEAKER) (test code = 754) 7.7 fL 6.5-10 .5 NUCLEATED RED BLOOD CELLS (BEAKER) (test code = 413) 0 /100 WBC 0 -0 NEUTROPHILS RELATIVE PERCENT (BEAKER) (test code = 429) 64 % LYMPHOCYTES RELATIVE PERCENT (BEAKER) (test code = 430) 23 % MONOCYTES RELATIVE PERCENT (BEAKER) (test code = 431) 11 % EOSINOPHILS RELATIVE PERCENT (BEAKER) (test code = 432) 2 % BASOPHILS RELATIVE PERCENT (BEAKER) (test code = 437) 1 % NEUTROPHILS ABSOLUTE COUNT (BEAKER) (test code = 670) 3.06 K/ L 1.80-8.00 LYMPHOCYTES ABSOLUTE COUNT (BEAKER) (test code = 414) 1.08 K/ L 1.48-4.50 L MONOCYTES ABSOLUTE COUNT (BEAKER) (test code = 415) 0.52 K/ L 0. 00-1.30 EOSINOPHILS ABSOLUTE COUNT (BEAKER) (test code = 416) 0.11 K/ L 0.00-0.50 BASOPHILS ABSOLUTE COUNT (BEAKER) (test code = 417) 0.03 K/ L 0. 00-0.20 0.00URINE AND [id number] 15:30:00Negative (02/19/17 10:30 AM)[facility] [id number] 15:30:00Small *ABN*(02/19/17 10:30 AM)[facility] [id number] 15:30:002[facility] STOOL 2017-02-19 15:30:0035[facility] GZWYS6265-04-47 15:30:006.0 [facility] [id number] 15:30:00Negative *NA*(02/19/17 10:30 AM)[facility] JCMNH9089-23-27 15:30:00Negative (02/19/17 10:30 AM) [facility] [id number] 15:30:001.012[facility] EGFHZ3664-01-16 15:30:00Slight *ABN*(02/19/17 10:30 AM)[facility]annCARDIAC FYQWGVA4324-47-03 14:23:0077[facility]annCHEM UBVUH5334-90-77 14:23:0094 [facility]annCHE[facility] [id number] 14:23:0013[facility]annCHEM PANEL 2017-02-19 14:23:0098[facility]annCHEM KQGXI5161-53-15 14:23:006.8[facility]annCHEM YMWEY4913-59-00 14:23:000.3[facility]annCHEM FPNJG4219-70-26 14:23:000.50[facility]annCHEM WMUWM0289-93-92 14:23:14942Luomontc HermannCHEM MQBLM1360-84-16 14:23:004.1[facility]annCHEM AXVCB8265-37-76 14:23:0030 [facility]annCHEM UUZJI1293-93-97 14:23:008.8[facility]annCHEM PANEL 2017-02-19 14:23:0030[facility]annCHEM LTTUX6996-70-00 14:23:003.6[facility]annCHEM TEKUE1409-99-01 14:23:22606Qtyryndo HermannCHEM UXAVD1014-36-50 14:23:0020[facility]annCHEM VRTYZ1618-00-40 14:23:92529Ckqlstgw HermannCHEM PLMQO5516-08-93 14:23:0026[facility]annCHEM DTOFI9849-11-87 14:23:001.1 [facility]annCHEM OHMJH6189-65-61 14:23:003.2[facility]annCHEM PANEL 2017-02-19 14:23:0010.1[facility]annCHEM DMCQW8179-13-93 14:23:98418Wueuxlwg QitvzugLDSZPZKMIG8465-29-98 14:23:000.90[facility] BrslhenZTGIJILRDT3461-05-33 14:23:00* Test Item Value Reference Range Interpretation Comments PT (test code = PT) 12.3 s 12.0-14.7 [facility] SlcvsegKCBTCETJAC6193-61-16 14:23:00* Test Item Value Reference Range Interpretation Comments PTT (test code = PTT) 29.4 s 22.9-35.8 [facility] BejjnjhZCEXNLTCGI0005-02-30 14:23:0014.2[facility]annHEMATOLOGY 2017-02-19 14:23:008.9[facility] IzbngnnKJUMFXHVTJ6913-19-73 14:23:18522Xzvxsbkd TgqwmlgARBJRXSNHY4675-60-91 14:23:0012.2[facility] GlcykwtMATQUMPTCV1203-18-53 14:23:00* Test Item Value Reference Range Interpretation Comments MCH (test code = MCH) 33.3 pg 27.0-31.0 [facility] UeoijamFJAFYEVAYF5611-90-04 14:23:0098.0[facility]annHEMATOLOGY 2017-02-19 14:23:0041.8[facility] IoajgcvFIKDKGPQTP6359-37-24 14:23:0034.0[facility] UykbglzWKFBGZLQRU8943-03-77 14:23:004.27[facility] CnwmttmJGXKDRAKAO9927-18-76 14:23:005.5[facility] GuewxigMPWRZKRFFR0866-77-72 14:23:008.6[facility] CVPIAWWFOF7078-84-51 14:23:001.2[facility] ZflijxvCESGZNTMQA1297-09-58 14:23:00 13.7[facility]orial QffnsgvOKYMXXQBKK5987-97-88 14:23:000.5[facility]annHEMATOLOGY 2017-02-19 14:23:000.8[facility] XmlxdisOKKDBXUSTC4334-33-51 14:23:000.8[facility] RpflgmhGYIHZIZYPT0497-17-80 14:23:004.2[facility] UddthedEBAYPCEHLV4230-24-06 14:23:0075.7[facility] CqkumdgOTTBXEHKIX5245-48-97 14:23:000.1[facility]
[2020-05-13] MEDS ORDERED: KETOROLAC TROMETHAMINE 60 MG/2 ML VIAL IM ONE (02:45)
[2020-05-13] MEDS ORDERED: KETOROLAC TROMETHAMINE 60 MG/2 ML VIAL ONE (02:49)
--- NOTE | 2020-05-13 03:20 | Diagnostic Imaging Report ---
EXAMINATION: Head CT without contrast. HISTORY:Status post fall. COMPARISON:MRI brain from 02/11/2018. TECHNIQUE: Multidetector axial images were obtained from the foramen magnum to the vertex without contrast. The images were reconstructed using brain and bone algorithms. Thin section brain images were reformatted into coronal and sagittal planes. Dose modulation, iterative reconstruction, and/or weight based adjustment of the mA/kV was utilized to reduce the radiation dose to as low as reasonably achievable. Intravenous contrast: None IMAGE QUALITY: Acceptable. FINDINGS: Skull/scalp: No lytic or blastic. lesions. No surgical changes. Parenchyma: Few, scattered supratentorial white matter hypodensity are likely related to small vessel ischemic changes. No acute hemorrhage, mass or acute major vascular territorial infarct. Arteries: No density suggestive of thrombosis. Mild atherosclerotic calcification in bilateral carotid siphon. Dural sinuses: No abnormal density suggestive of thrombosis. Ventricles: No hydrocephalus or displacement. Extra-axial spaces: No abnormal density. Brain volume: Normal for age. Craniocervical junction: No mass, Chiari malformation, or basilar invagination. Sella: No mass. Paranasal/mastoid sinuses: Mild mucosal thickening in right maxillary sinus with thickened, sclerotic sinus wall represents chronic inflammation. Changes from prior right maxillary antrostomy. IMPRESSION: No acute intracranial abnormality. Mild supratentorial white matter microvascular ischemic changes. Mild age-related generalized cerebral volume loss. Signed by: Dr. Maci Trivedi M.D. on 05/13/2020 3:17 AM
--- NOTE | 2020-05-13 03:26 | Diagnostic Imaging Report ---
History: Trauma, fall complains of neck pain. Comparison studies: Report of CT cervical spine from 09/01/2015. Technique: Axial images were obtained through the cervical region.. Coronal and sagittal images reconstructed from the axial data. Dose modulation, iterative reconstruction, and/or weight based adjustment of the mA/kV was utilized to reduce the radiation dose to as low as reasonably achievable. Intravenous contrast: None Findings: Fractures: None. Soft tissue injuries: None. Atlantoaxial articulation: Intact. Alignment: Reversal of normal cervical lordosis is either positional or due to muscle spasm. No subluxation. No scoliosis. Cervicomedullary junction: No abnormalities. The foramen magnum is patent. Soft tissues: No abnormalities. Vertebrae: No fractures, infection or neoplasm. Degenerative changes: Moderate degenerative changes in the anterior atlantodental joint. C3-C4: Mild left foraminal stenosis due to facet and uncovertebral arthrosis. C4-C5: Moderate degenerative disc disease. Mild right and severe left foraminal stenosis due to facet and uncovertebral arthrosis. C5-C6: Moderate degenerative disc disease. Posterior disc osteophyte complex results in mild canal stenosis. Moderate bilateral foraminal stenosis due to uncovertebral arthrosis. C6-C7: Moderate to severe degenerative disc disease. Posterior disc osteophyte complex results in mild canal stenosis. Severe right and moderate left foraminal stenosis due to uncovertebral arthrosis. IMPRESSION: 1. No acute cervical spine fracture or dislocation. Reversal of normal cervical lordosis is either positional or due to muscle spasm. 2. Ligament, spinal cord and or vascular abnormalities cannot be excluded on the basis of this examination. 3. Multilevel cervical spondylosis as detailed above. Signed by: Dr. Maci Trivedi M.D. on 05/13/2020 3:23 AM
[2020-05-13] MEDS ORDERED: ULTRAM50 MG PO (03:49)
--- NOTE | 2020-05-13 04:01 | Emergency Department Note ---
History of Present Illnes History of Present Illness Chief Complaint: General Medicine Complaints History of Present Illness This is a 80 year old female presents with neck pain s/p fall down two steps on stairs. Patient climbed up to steps to shrimp picker 2 year old grandson and then lost balance when trying to walk backwards down steps and fell backwards. No LOC, no numbness, tingling, weakness. No loss of bowel, bladder function. De nies any other injuries. States has chronic neck pain. Current pain same location and type of pain, but more severe. No cough, sore throat, URI sx, loss taste/smell, diarrhea, or Covid contacts. Historian: Patient Arrival Mode: Car Billing Clerk Required: No Onset (how long ago): day(s) (05/11/20) Radiation: Reports non-radiation Severity: unable to specify Onset quality: sudden Duration (how long): day(s) (05/11/20) Progression: unchanged Chronicity: new Context: Reports trauma/injury; Denies recent illness Relieving factors: none Exacerbating factors: none Associated symptoms: Reports headaches; Denies confusion, Denies chest pain, Denies cough, Denies diaphoresis, Denies fever/chills, Denies loss of appetite, Denies malaise, Denies nausea/vomiting, Denies rash Treatments prior to arrival: other (Butalbital, caffiene, APAP) Past Medical/Family History Physician Review I have reviewed the patient's past medical and family history. Any updates have been documented here. 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 Social History Smoking Cessation: Never Smoker Counseling Performed: No Alcohol Use: None Any Illegal Drug Use: No Physically hurt or threatened: No Other Last Tetanus: UNK Any Pre-Existing Lines (PICC,: No Review of Systems Review of Systems Constitutional: Denies chills, Denies fever EENTM: Denies throat pain, Denies mouth pain Cardiovascular: Denies chest pain, Denies edema, Denies palpitations, Denies syncope Respiratory: Denies cough, Denies dyspnea Gastrointestinal: Denies abdominal pain, Denies constipation, Denies diarrhea Genitourinary: Denies dysuria, Denies hematuria Musculoskeletal: Reports neck pain Integumentary: Denies rash Neurological: Reports headache; Denies numbness, Denies paresthesia, Denies tingling, Denies weakness Hematological/Lymphatic: Denies easy bleeding Physical Exam Related Data Allergies: Coded Allergies: codeine (Verified Allergy, Mild, HEADACHE, 01/21/10) hydrocodone (Verified Allergy, Mild, NAUSEA, 01/21/10) meperidine (Verified Allergy, Mild, NAUSEA, 01/21/10) Penicillins (Verified Allergy, Unknown, 02/18/17) Triage Vital Signs Vital Signs Date Time Temp Pulse Resp B/P (MAP) Pulse Ox O2 Delivery O2 Flow Rate FiO2 05/13/20 02:00 97.7 67 18 172/76 98 Room Air Physical Exam CONSTITUTIONAL Constitutional: Present well-developed, Present well-nourished HENT HENT: Present normocephalic, Present atraumatic, Present oropharynx clear/moist, Present nose normal EYES Eyes: Reports PERRL, Reports conjunctivae normal NECK Neck: Present ROM normal, Present supple, Present other (+ spasm right side. Mild tenderness over inferior aspect of occipital condyle.) PULMONARY Pulmonary: Present effort normal, Present breath sounds normal CARDIOVASCULAR Cardiovascular: Present regular rhythm, Present heart sounds normal, Present capillary refill normal, Present normal rate GASTROINTESTINAL Abdominal: Present soft, Present nontender, Present bowel sounds normal GENITOURINARY SKIN Skin: Absent rash MUSCULOSKELETAL Musculoskeletal: Present ROM normal; Absent edema, Absent deformity, Absent tenderness NEUROLOGICAL Neurological: Present alert, Present oriented x 3, Present DTRs normal, Present no gross motor or sensory deficits; Absent sensory deficit, Absent abnormal DTRs, Absent abnormal gait, Absent we akness PSYCHOLOGICAL Psychological: Present mood/affect normal, Present behavior normal Results Imaging Imaging Comments EXAMINATION: Head CT without contrast. HISTORY:Status post fall. COMPARISON:MRI brain from 02/11/2018. TECHNIQUE: Multidetector axial images were obtained from the foramen magnum to the vertex without contrast. The images were reconstructed using brain and bone algorithms. Thin section brain images were reformatted into coronal and sagittal planes. Dose modulation, iterative reconstruction, and/or weight based adjustment of the mA/kV was utilized to reduce the radiation dose to as low as reasonably achievable. Intravenous contrast: None IMAGE QUALITY: Acceptable. FINDINGS: Skull/scalp: No lytic or blastic. lesions. No surgical changes. Parenchyma: Few, scattered supratentorial white matter hypodensity are likely related to small vessel ischemic changes. No acute hemorrhage, mass or acute major vascular territorial infarct. Arteries: No density suggestive of thrombosis. Mild atherosclerotic calcification in bilateral carotid siphon. Dural sinuses: No abnormal density suggestive of thrombosis. Ventricles: No hydrocephalus or displacement. Extra-axial spaces: No abnormal density. Brain volume: Normal for age. Craniocervical junction: No mass, Chiari malformation, or basilar invagination. Sella: No mass. Paranasal/mastoid sinuses: Mild mucosal thickening in right maxillary sinus with thickened, sclerotic sinus wall represents chronic inflammation. Changes from prior right maxillary antrostomy. IMPRESSION: No acute intracranial abnormality. Mild supratentorial white matter microvascular ischemic changes. Mild age-related generalized cerebral volume loss. Signed by: Dr. Maci Trivedi M.D. on 05/13/2020 3:17 AM Technique: Axial images were obtained through the cervical region.. Coronal and sagittal images reconstructed from the axial data. Dose modulation, iterative reconstruction, and/or weight based adjustment of the mA/kV was utilized to reduce the radiation dose to as low as reasonably achievable. Intravenous contrast: None Findings: Fractures: None. Soft tissue injuries: None. Atlantoaxial articulation: Intact. Alignment: Reversal of normal cervical lordosis is either positional or due to muscle spasm. No subluxation. No scoliosis. Cervicomedullary junction: No abnormalities. The foramen magnum is patent. Soft tissues: No abnormalities. Vertebrae: No fractures, infection or neoplasm. Degenerative changes: Moderate degenerative changes in the anterior atlantodental joint. C3-C4: Mild left foraminal stenosis due to facet and uncovertebral arthrosis. C4-C5: Moderate degenerative disc disease. Mild right and severe left foraminal stenosis due to facet and uncovertebral arthrosis. C5-C6: Moderate degenerative disc disease. Posterior disc osteophyte complex results in mild canal stenosis. Moderate bilateral foraminal stenosis due to uncovertebral arthrosis. C6-C7: Moderate to severe degenerative disc disease. Posterior disc osteophyte complex results in mild canal stenosis. Severe right and moderate left foraminal stenosis due to uncovertebral arthrosis. IMPRESSION: 1. No acute cervical spine fracture or dislocation. Reversal of normal cervical lordosis is either positional or due to muscle spasm. 2. Ligament, spinal cord and or vascular abnormalities cannot be excluded on the basis of this examination. 3. Multilevel cervical spondylosis as detailed above. Signed by: Dr. Maci Trivedi M.D. on 05/13/2020 3:23 AM Assessment & Plan Medical Decision Making [facility] Differential dx includes, but not limited to: SAH, subdural, epidural, fracture, sprain, strain, HNP, ligament injury. patient looked up in LAB DIRECTOR Aware. Reassessment Reassessment time: 03:48 Reassessment Better after toradol Assessment & Plan Final Impression: (1) Cervical sprain (2) Muscle spasms of neck Depart Disposition: HOME, SELF-CARE Last Vital Signs Date Time Temp Pulse Resp B/P (MAP) Pulse Ox O2 Delivery O2 Flow Rate FiO2 05/13/20 02:00 97.7 67 18 172/76 98 Room Air Home Meds Active Scripts Tramadol Hcl (ULTRAM) 50 Mg Tablet, 50 MG PO Q6HR PRN for SEVERE PAIN (7-10), #20 TAB Prov:ROLLY VALDERRAMA MD 05/13/20 Reported Medications Levothyroxine Sodium (SYNTHROID) 75 Mcg Tab, 75 MCG PO DAILY, #30 TAB 02/10/18 [Metoprolol] No Conflict Check, 50 MG PO for bp 07/06/14 Butalbital/Aspirin/Caffeine (FIORINAL 50-325-40 MG CAPSULE) 1 Each Capsule, 1 CAP PO TID PRN for PAIN 07/06/14 Omeprazole (OMEPRAZOLE) 40 Mg Capsule.dr, 1 CAP PO DAILY 07/06/14 Desvenlafaxine Succinate (PRISTIQ ER) 50 Mg Tab.er.24h, 50 MG PO DAILY, #30 TAB 07/06/14 ROLLY VALDERRAMA MD May 13, 2020 02:36
== END 2020-05-13 04:05 | disposition home or self-care (01) ==
LOC: FSED 02:35
DX: S13.4XXA Sprain of ligaments of cervical spine, initial encounter (principal); M62.830 Muscle spasm of back; W10.8XXA Fall (on) (from) other stairs and steps, initial encounter; Y93.01 Activity, walking, marching and hiking; Y92.008 Other place in unspecified non-institutional (private) residence as the place of occurrence of the external cause; I10 Essential (primary) hypertension; E78.5 Hyperlipidemia, unspecified; F41.9 Anxiety disorder, unspecified; Z85.528 Personal history of other malignant neoplasm of kidney
CPT/HCPCS: 70450; 72125; 99283; J1885

== ENCOUNTER → 2020-05-20 | Outpatient (CLI) | payer MEDICARE, OTHER ==
[~2020-05-20] MED LIST changes: +ULTRAM50 MG PO
--- NOTE | 2020-05-21 12:12 | Diagnostic Imaging Report ---
MRI SPINE CERVICAL WO HISTORY: Cervical radiculopathy COMPARISON: Cervical spine CT 05/13/2020 TECHNIQUE: Sagittal T1, sagittal T2, sagittal inversion recovery, axial T2, axial T1 and axial T2 GRE weighted MR images of the cervical spine were obtained without intravenous contrast. Motion artifacts obscure some details. DISCUSSION: Alignment: Straightening of the cervical spine lordosis. No scoliosis. Vertebrae: No definite evidence for fractures, or neoplasm. Cervicomedullary junction: Mild T2 hyperintensity in the luis a may be due to mild chronic microvascular ischemic change. Spinal cord: Normal in signal and morphology from the foramen magnum through T3. Soft tissues: No signal abnormalities. Multilevel disc degeneration is advanced from C4-C5 to C6-C7 with associated nonspecific minimal multilevel inflammatory endplate changes. C2-C3: Mild left foraminal stenosis due to uncovertebral and facet arthrosis. No significant canal or right foraminal stenosis. C3-C4: Mild right and moderate left foraminal stenoses due to uncovertebral and facet arthrosis. No significant canal stenosis. C4-C5: Mild canal stenosis due to posterior disc osteophyte complex and ligamentum flavum thickening. Moderate to severe right and moderate left foraminal stenoses due to uncovertebral and facet arthrosis. There is mild periarticular edema along the right C4-C5 facet joint. C5-C6: Mild to moderate canal stenosis due to posterior disc osteophyte complex and ligamentum flavum thickening. Moderate to severe right and moderate left foraminal stenoses due to uncovertebral and facet arthrosis. C6-C7: Mild to moderate canal stenosis due to posterior disc osteophyte complex and ligamentum flavum thickening. Severe right and moderate left foraminal stenoses due to uncovertebral and facet arthrosis. C7-T1: Patent canal and foramina. IMPRESSION: 1. Advanced disc degeneration from C4-C5 to C6-C7 with nonspecific minimal multilevel inflammatory endplate changes. 2. Multilevel degenerative canal stenoses - mild to moderate at C5-C6 and C6-C7. 3. Multilevel moderate to severe bilateral degenerative foraminal stenoses, greater on the right side. 4. Mild right C4-C5 facet synovitis. Signed by: Dr. Cayetano Guillen M.D. on 05/21/2020 12:09 PM
== END ==
LOC: MRI 14:29
PROVIDERS: ATTEND Family Medicine
DX: M54.13 Radiculopathy, cervicothoracic region (principal)
CPT/HCPCS: 72141

== ENCOUNTER → 2020-11-18 | Day surgery (SDC) | payer MEDICARE, OTHER ==
[2020-11-14 10:39] LABS: BASOPHILS % 0.8 % (0.0-1.0); EOSINOPHILS # (AUTO) 0.1 (0.0-0.4); EOSINOPHILS % 2.3 % (0.0-6.0); HEMATOCRIT 41.3 % (34.2-44.1); HEMOGLOBIN 13.8 g/dL (12.0-16.0); LYMPHOCYTES # (AUTO) 0.9 (1.0-3.2); LYMPHOCYTES % 18.4 % (18.0-39.1); MEAN CORPUSCULAR HEMOGLOBIN 32.9 pg (28-32); MEAN CORPUSCULAR HGB CONC 33.4 g/dL (31-35); MEAN CORPUSCULAR VOLUME 98.6 fL (81-99); MONOCYTES # (AUTO) 0.5 (0.2-0.8); MONOCYTES % 10.2 % (4.4-11.3); NEUTROPHILS # (AUTO) 3.3 (2.1-6.9); NEUTROPHILS % 67.5 % (38.7-80.0); PLATELET COUNT 140 x10e3/uL (140-360); RED BLOOD COUNT 4.19 x10e6/uL (3.6-5.1); RED CELL DISTRIBUTION WIDTH 11.9 % (11.7-14.4)
[~2020-11-18] MED LIST changes: +CALCIUM PO; +FENTANYL CITRATE/PF 100MCG/2 ML INJ ONE; +GLUCAGON FOR INJ 1 MG VIAL ONE; +HYOSCYAMINE SULFATE 0.5 MG/ML INJ ONE; +METOPROLOL SUCC50 MG PO; +PROBIOTIC ACID1.5 MG PO; +PROPOFOL IV EMULSION 10 MG/ML 20 ML VIAL ONE; +TRELEGY ELLIPT1 EACH IH; +VITAMIN C500 MG PO; +VITAMIN D3250 MC1 PO; +WOMEN'S DAILY1 EACH PO; +ZINC PO
[2020-11-18 12:25] VITALS: BP 138/69
== END | disposition home or self-care (01) ==
LOC: OR 07:50
PROVIDERS: ATTEND Internal Medicine Gastroenterology
DX: K59.00 Constipation, unspecified (principal); D12.2 Benign neoplasm of ascending colon; D12.5 Benign neoplasm of sigmoid colon; K31.7 Polyp of stomach and duodenum; K29.70 Gastritis, unspecified, without bleeding; K21.9 Gastro-esophageal reflux disease without esophagitis; K20.90 Esophagitis, unspecified without bleeding; K22.8 Other specified diseases of esophagus; K44.9 Diaphragmatic hernia without obstruction or gangrene; K64.8 Other hemorrhoids; I10 Essential (primary) hypertension; E03.9 Hypothyroidism, unspecified; Z88.6 Allergy status to analgesic agent; Z88.0 Allergy status to penicillin; Z01.810 Encounter for preprocedural cardiovascular examination; Z01.812 Encounter for preprocedural laboratory examination; Z20.822 Contact with and (suspected) exposure to COVID-19; Z87.891 Personal history of nicotine dependence
CPT/HCPCS: 36415; 43239; 45384; 45385; 85025; 88305; 88312; 93005; J1610; J1980; J2704; J3010; U0002; 45378

== ENCOUNTER → 2020-12-12 | Day surgery (SDC) | payer MEDICARE, OTHER ==
[~2020-12-12] MED LIST changes: -FENTANYL CITRATE/PF 100MCG/2 ML INJ ONE; -GLUCAGON FOR INJ 1 MG VIAL ONE; -HYOSCYAMINE SULFATE 0.5 MG/ML INJ ONE; +IOPAMIDOL 200 MG/ML 20 ML VIAL IT ONE; +LIDOCAINE HCL 1% 30ML-PF VIAL ONE; +LIDOCAINE HCL 1% LOCAL INJ 20 ML VIAL ONE; +LIDOCAINE HCL 2% LOCAL INJ 5 ML SDV VIAL INJ ONE; +POVIDONE IODINE 0.05% 0.05 % ML PO ONE; -PROPOFOL IV EMULSION 10 MG/ML 20 ML VIAL ONE; +ROCURONIUM BROMIDE 10 MG/ML 5ML VIAL IV ONE; +TRIAMCINOLONE ACET 40 MG/ML VIAL ONE
[2020-12-12 07:45] VITALS: BP 120/62
== END | disposition home or self-care (01) ==
LOC: OR 06:07
PROVIDERS: ATTEND Physical Medicine & Rehabilitation Pain Medicine
DX: M47.892 Other spondylosis, cervical region (principal); M54.81 Occipital neuralgia; G44.89 Other headache syndrome; J44.9 Chronic obstructive pulmonary disease, unspecified; I10 Essential (primary) hypertension; Z88.6 Allergy status to analgesic agent; Z88.0 Allergy status to penicillin; Z01.812 Encounter for preprocedural laboratory examination; Z20.822 Contact with and (suspected) exposure to COVID-19; Z90.5 Acquired absence of kidney; Z85.528 Personal history of other malignant neoplasm of kidney; Z87.891 Personal history of nicotine dependence
CPT/HCPCS: 64490; 64491; 64492; J2001 ×3; J3301; Q9967; U0002; 77003

== ENCOUNTER → 2021-01-16 | Day surgery (SDC) | payer MEDICARE, OTHER ==
[2021-01-13 12:31] LABS: BASOPHILS % 0.7 % (0.0-1.0); EOSINOPHILS # (AUTO) 0.1 (0.0-0.4); EOSINOPHILS % 2.5 % (0.0-6.0); HEMATOCRIT 42.2 % (34.2-44.1); HEMOGLOBIN 13.8 g/dL (12.0-16.0); LYMPHOCYTES # (AUTO) 0.8 (1.0-3.2); LYMPHOCYTES % 20.7 % (18.0-39.1); MEAN CORPUSCULAR HEMOGLOBIN 32.9 pg (28-32); MEAN CORPUSCULAR HGB CONC 32.7 g/dL (31-35); MEAN CORPUSCULAR VOLUME 100.7 fL (81-99); MONOCYTES # (AUTO) 0.4 (0.2-0.8); MONOCYTES % 9.7 % (4.4-11.3); NEUTROPHILS # (AUTO) 2.6 (2.1-6.9); NEUTROPHILS % 65.7 % (38.7-80.0); PLATELET COUNT 148 x10e3/uL (140-360); RED BLOOD COUNT 4.19 x10e6/uL (3.6-5.1); RED CELL DISTRIBUTION WIDTH 11.8 % (11.7-14.4)
[~2021-01-16] MED LIST changes: +FENTANYL CITRATE/PF 100MCG/2 ML INJ ONE; -LIDOCAINE HCL 1% LOCAL INJ 20 ML VIAL ONE; -LIDOCAINE HCL 2% LOCAL INJ 5 ML SDV VIAL INJ ONE; +MIDAZOLAM HCL 2 MG/2 ML VIAL ONE; +PROPOFOL IV EMULSION 10 MG/ML 20 ML VIAL ONE; -ROCURONIUM BROMIDE 10 MG/ML 5ML VIAL IV ONE
[2021-01-16 08:00] VITALS: BP 143/56
== END | disposition home or self-care (01) ==
LOC: OR 07:20
PROVIDERS: ATTEND Physical Medicine & Rehabilitation Pain Medicine
DX: M47.892 Other spondylosis, cervical region (principal); M54.12 Radiculopathy, cervical region; M54.81 Occipital neuralgia; G44.89 Other headache syndrome; J44.9 Chronic obstructive pulmonary disease, unspecified; I10 Essential (primary) hypertension; E03.9 Hypothyroidism, unspecified; K21.9 Gastro-esophageal reflux disease without esophagitis; Z88.6 Allergy status to analgesic agent; Z88.0 Allergy status to penicillin; Z01.812 Encounter for preprocedural laboratory examination; Z20.822 Contact with and (suspected) exposure to COVID-19; Z90.5 Acquired absence of kidney; Z85.528 Personal history of other malignant neoplasm of kidney
CPT/HCPCS: 36415; 64490; 64491; 64492; 85025; J2001; J2250; J2704; J3010; J3301; Q9967; U0002; 77003

== ENCOUNTER → 2021-02-27 | Day surgery (SDC) | payer MEDICARE, OTHER ==
[2021-02-24 09:12] LABS: BASOPHILS % 0.7 % (0.0-1.0); EOSINOPHILS # (AUTO) 0.1 (0.0-0.4); EOSINOPHILS % 2.6 % (0.0-6.0); LYMPHOCYTES # (AUTO) 0.8 (1.0-3.2); LYMPHOCYTES % 19.2 % (18.0-39.1); MEAN CORPUSCULAR HEMOGLOBIN 32.1 pg (28-32); MEAN CORPUSCULAR HGB CONC 32.6 g/dL (31-35); MEAN CORPUSCULAR VOLUME 98.6 fL (81-99); MONOCYTES # (AUTO) 0.5 (0.2-0.8); NEUTROPHILS # (AUTO) 2.7 (2.1-6.9); NEUTROPHILS % 64.8 % (38.7-80.0); PLATELET COUNT 139 x10e3/uL (140-360); RED BLOOD COUNT 4.36 x10e6/uL (3.6-5.1); RED CELL DISTRIBUTION WIDTH 11.8 % (11.7-14.4)
[~2021-02-27] MED LIST changes: +BUPIVACAINE 0.25% 30ML SDV ONE; -FENTANYL CITRATE/PF 100MCG/2 ML INJ ONE; -MIDAZOLAM HCL 2 MG/2 ML VIAL ONE; -TRIAMCINOLONE ACET 40 MG/ML VIAL ONE
[2021-02-27 08:55] VITALS: BP 156/81
== END | disposition home or self-care (01) ==
LOC: OR 06:25
PROVIDERS: ATTEND Physical Medicine & Rehabilitation Pain Medicine
DX: M47.892 Other spondylosis, cervical region (principal); M54.12 Radiculopathy, cervical region; M54.81 Occipital neuralgia; J44.9 Chronic obstructive pulmonary disease, unspecified; I10 Essential (primary) hypertension; Z88.6 Allergy status to analgesic agent; Z88.0 Allergy status to penicillin; Z01.810 Encounter for preprocedural cardiovascular examination; Z01.812 Encounter for preprocedural laboratory examination; Z20.822 Contact with and (suspected) exposure to COVID-19; Z85.528 Personal history of other malignant neoplasm of kidney; Z90.5 Acquired absence of kidney
CPT/HCPCS: 36415; 64490; 64491; 64492; 85025; 93005; J2001; J2704; Q9967; U0002; 77003

== ENCOUNTER 2021-07-06 13:22 | Emergency (ER) | payer MEDICARE, OTHER ==
[~2021-07-06] VITALS: Ht 165.1 cm; Wt 76.2 kg
[~2021-07-06 13:22] MED LIST changes: -BUPIVACAINE 0.25% 30ML SDV ONE; -IOPAMIDOL 200 MG/ML 20 ML VIAL IT ONE; -LIDOCAINE HCL 1% 30ML-PF VIAL ONE; -POVIDONE IODINE 0.05% 0.05 % ML PO ONE; -PROPOFOL IV EMULSION 10 MG/ML 20 ML VIAL ONE
[2021-07-06] MEDS ORDERED: BACLOFEN10 MG PO (14:08)
[2021-07-06] MEDS ORDERED: OCUVITE LUTEIN1 EACH PO (14:08)
[2021-07-06] MEDS ORDERED: ONDANSETRON HCL INJ 2MG/ML 2ML 2 MG/ML VIAL IV NR (14:42)
[2021-07-06] MEDS ORDERED: KETOROLAC TROMETHAMINE 30 MG/ML VIAL IV STA (14:44)
[2021-07-06] MEDS ORDERED: DEXAMETHASONE SOD PHOS 10 MG/1 ML VIAL IV NR (14:45)
[2021-07-06] MEDS ORDERED: SODIUM CHLORIDE 0.9% 500ML 500 ML IV ONE (14:45)
[2021-07-06] MEDS ORDERED: KETOROLAC TROMETHAMINE 30 MG/ML VIAL ONE (15:02)
[2021-07-06] MEDS ORDERED: ONDANSETRON HCL INJ 2MG/ML 2ML 2 MG/ML VIAL ONE (15:02)
[2021-07-06] MEDS ORDERED: DEXAMETHASONE SOD PHOS INJ 4 MG/ML SDV ONE (15:02)
[2021-07-06] MEDS ORDERED: SODIUM CHLORIDE 0.9% 500ML 500 ML ONE (15:03)
[2021-07-06] MEDS ORDERED: DIAZEPAM INJ 5 MG/ML 2 ML ONE (15:12)
[2021-07-06] MEDS ORDERED: DIAZEPAM5 MG PO ×2 (16:32→16:43)
[2021-07-06] MEDS ORDERED: DIAZEPAM INJ 5 MG/ML 2 ML IV ONE (16:45)
[2021-07-06] MEDS ORDERED: ONDANSETRON ODT4 MG PO (17:16)
== END 2021-07-06 16:44 | disposition home or self-care (01) ==
LOC: FSED 13:54
DX: M54.2 Cervicalgia (principal); M62.838 Other muscle spasm; R51.9 Headache, unspecified; K21.9 Gastro-esophageal reflux disease without esophagitis; E03.9 Hypothyroidism, unspecified; Z88.5 Allergy status to narcotic agent; Z88.0 Allergy status to penicillin; Z88.8 Allergy status to other drugs, medicaments and biological substances; I10 Essential (primary) hypertension
CPT/HCPCS: 70450; 72125; 80053; 81003; 85025; 96374; 96375; 99284; J1100; J1885; J2405; J3360; J7040

== ENCOUNTER → 2021-07-14 | Outpatient (CLI) | payer MEDICARE, OTHER ==
[~2021-07-14] MED LIST changes: +BACLOFEN10 MG PO; +DIAZEPAM5 MG PO; +OCUVITE LUTEIN1 EACH PO; +ONDANSETRON ODT4 MG PO
== END ==
LOC: MRI 12:23
PROVIDERS: ATTEND Neurological Surgery
DX: M50.120 Mid-cervical disc disorder, unspecified level (principal)
CPT/HCPCS: 72141

== ENCOUNTER 2021-10-15 12:33 | Emergency (ER) | payer OTHER, MEDICARE ==
[~2021-10-15] VITALS: Ht 165.1 cm; Wt 79.2 kg
[2021-10-15 14:29] VITALS: BP 160/78
== END 2021-10-15 14:30 | disposition home or self-care (01) ==
LOC: FSED 12:50
DX: R20.2 Paresthesia of skin (principal); I63.9 Cerebral infarction, unspecified; M54.12 Radiculopathy, cervical region; I10 Essential (primary) hypertension; E11.9 Type 2 diabetes mellitus without complications; E03.9 Hypothyroidism, unspecified; K21.9 Gastro-esophageal reflux disease without esophagitis; R94.31 Abnormal electrocardiogram [ECG] [EKG]; Z20.822 Contact with and (suspected) exposure to COVID-19
CPT/HCPCS: 70450; 72125; 80053; 81003; 82553; 84484; 85025; 93005; 99284; U0002

== ENCOUNTER 2022-10-08 18:43 | Emergency (ER) | payer MEDICARE, OTHER ==
[~2022-10-08] VITALS: Ht 165.1 cm; Wt 78.9 kg
[2022-10-08] MEDS ORDERED: CLONIDINE HCL 0.1 MG TAB PO ONE (19:15)
[2022-10-08] MEDS ORDERED: ACETAMINOPHEN 325 MG TAB PO ONE (19:15)
[2022-10-08] MEDS ORDERED: ONDANSETRON HCL 4 MG ORAL DISINTEGRATING TAB PO ONE (19:15)
[2022-10-08] MEDS ORDERED: KETOROLAC TROMETHAMINE 30 MG/ML VIAL IM ONE (19:15)
[2022-10-08] MEDS ORDERED: ESGIC 50-325-41 EACH PO (19:20)
[2022-10-08] MEDS ORDERED: ONDANSETRON ODT4 MG PO (19:20)
[2022-10-08] MEDS ORDERED: IBUPROFEN200 MG PO (19:20)
[2022-10-08] MEDS ORDERED: ONDANSETRON HCL 4 MG ORAL DISINTEGRATING TAB ONE (19:35)
[2022-10-08] MEDS ORDERED: ACETAMINOPHEN 325 MG TAB ONE (19:35)
[2022-10-08] MEDS ORDERED: KETOROLAC TROMETHAMINE 30 MG/ML VIAL ONE (19:35)
[2022-10-08] MEDS ORDERED: CLONIDINE HCL 0.1 MG TAB ONE (19:37)
== END 2022-10-08 20:10 | disposition home or self-care (01) ==
LOC: FSED 18:55
DX: R51.9 Headache, unspecified (principal); I10 Essential (primary) hypertension; E11.9 Type 2 diabetes mellitus without complications; E03.9 Hypothyroidism, unspecified; K21.9 Gastro-esophageal reflux disease without esophagitis; M54.2 Cervicalgia; G89.29 Other chronic pain; Z85.528 Personal history of other malignant neoplasm of kidney
CPT/HCPCS: 70450; 81003; 99283; J1885; Q0162

== ENCOUNTER 2024-02-04 08:48 | Emergency (ER) | payer MEDICARE, OTHER ==
[~2024-02-04] VITALS: Ht 165.1 cm; Wt 78.9 kg
[~2024-02-04 08:48] MED LIST changes: +ESGIC 50-325-41 EACH PO; +IBUPROFEN200 MG PO
[2024-02-04] MEDS: PREDNISONE 20 MG TAB PO STA (09:35)
[2024-02-04] MEDS: TRAMADOL HCL 50 MG TAB PO STA (09:36)
[2024-02-04] MEDS ORDERED: ULTRAM 50MG50 MG PO (11:22)
[2024-02-04] MEDS ORDERED: PREDNISONE20 MG PO (11:25)
[2024-02-04 11:46] VITALS: PULSE 59; RESP 18; TEMP 98.1; O2SAT 96
== END 2024-02-04 11:30 | disposition home or self-care (01) ==
LOC: FSED 09:25
DX: M54.42 Lumbago with sciatica, left side (principal); I70.0 Atherosclerosis of aorta; N20.0 Calculus of kidney; I10 Essential (primary) hypertension; E11.9 Type 2 diabetes mellitus without complications; E03.9 Hypothyroidism, unspecified; K21.9 Gastro-esophageal reflux disease without esophagitis; M54.2 Cervicalgia; G89.29 Other chronic pain; Z85.528 Personal history of other malignant neoplasm of kidney
CPT/HCPCS: 74176; 99283; J7512

== ENCOUNTER 2025-03-21 09:20 | Emergency (ER) | payer MEDICARE, OTHER ==
[~2025-03-21] VITALS: Ht 160 cm; Wt 83.9 kg
[~2025-03-21 09:20] MED LIST changes: +PREDNISONE20 MG PO; +ULTRAM 50MG50 MG PO
[2025-03-21] MEDS: IBUPROFEN 600 MG TAB PO STA (10:31)
[2025-03-21] MEDS ORDERED: MACROBID 100 M100 MG PO (11:27)
[2025-03-21 11:39] VITALS: PULSE 56; RESP 16; TEMP 97.7; O2SAT 98
== END 2025-03-21 11:39 | disposition home or self-care (01) ==
LOC: FSED 09:36
DX: R20.2 Paresthesia of skin (principal); N39.0 Urinary tract infection, site not specified; M54.12 Radiculopathy, cervical region; R25.2 Cramp and spasm; I10 Essential (primary) hypertension; E11.9 Type 2 diabetes mellitus without complications; E03.9 Hypothyroidism, unspecified; I25.10 Atherosclerotic heart disease of native coronary artery without angina pectoris; E78.5 Hyperlipidemia, unspecified; K21.9 Gastro-esophageal reflux disease without esophagitis; M54.9 Dorsalgia, unspecified; G89.29 Other chronic pain; Z85.53 Personal history of malignant neoplasm of renal pelvis
CPT/HCPCS: 80048; 80076; 81003; 85025; 99284